=== PATIENT | female | born 1985 ===

== ENCOUNTER 2018-02-07 21:34 | Emergency (ER) | payer BC, MEDICAID ==
[2018-02-07 21:34] VITALS: BMI 23.3
[2018-02-07 22:35] VITALS: BP 118/73; PULSE 77; RESP 16; TEMP 98.4; O2SAT 98
== END 2018-02-07 22:49 | disposition left against medical advice (07) ==
LOC: C.ER 21:34
DX: Z02.89 Encounter for other administrative examinations (principal); F19.10 Other psychoactive substance abuse, uncomplicated

== ENCOUNTER 2018-02-07 23:11 | Inpatient (IN) | payer BC, MEDICAID ==
[2018-02-07 23:12] VITALS: BMI 23.3
--- NOTE | 2018-02-08 00:24 | C.PDOC ---
History Of Present Illness 33 year old female presents to the ER withdrawing from xanax and oxycodone. Patient reports having diffuse body aches. Denies homicidal ideation or suicidal ideation.Last use in am. Some nausea, no vomiting Time Seen by Provider: 02/08/18 00:24 Chief Complaint (Nursing): Substance Abuse History Per: Patient History/Exam Limitations: no limitations Onset/Duration Of Symptoms: Hrs Current Symptoms Are (Timing): Worse Suicide/Self Injury Attempted (Context): None Modifying Factor(s): Alcohol, Narcotics Severity: Moderate Pain Scale Rating Of: 4 Associated Symptoms: Anxiety, Agitation. denies: Suicidal Thoughts, Other ( Homicidal ideation) Involuntary Hold By: None Recent travel outside of the [place]: No Additional History Per: Patient Past Medical History Reviewed: Historical Data, Nursing Documentation, Vital Signs Vital Signs: Last Vital Signs Temp 98.1 F 02/07/18 23:16 Pulse 77 02/07/18 23:16 Resp 16 02/07/18 23:16 BP 110/72 02/07/18 23:16 Pulse Ox 97 02/08/18 02:12 - Medical History PMH: Anxiety, Asthma, Back Problems, Kidney Stones, Chronic Kidney Disease ( kidney stones), Chronic Pain Denies: Diabetes, Hepatitis, HIV, HTN, Seizures, Sexually Transmitted Disease Surgical History: Cholecystectomy - [facility] CYSTOSCOPY NEC (07/30/13) DESTRUCTION OF RIGHT OVARY, PERCUTANEOUS ENDOSCOPIC APPROACH (05/12/16) INFLUENZA VACCINATION (07/30/13) NEBULIZER THERAPY (07/30/13) OTHER SKIN & SUBQ I D (07/13/13) RELEASE LEFT LARGE INTESTINE, PERC ENDO APPROACH (05/12/16) TETANUS TOXOID ADMINIST (07/13/13) TU REMOV URETER OBSTRUCT (08/29/13) URETERAL CATHETERIZATION (08/29/13) URETEROSCOPY (07/30/13) Family History: States: Hypertension - Social History Hx Tobacco Use: No Hx Alcohol Use: Yes Hx Substance Use: Yes - Immunization History Hx Tetanus Toxoid Vaccination: No Hx Influenza Vaccination: No Hx Pneumococcal Vaccination: No Review Of Systems Constitutional: Positive for: Sweats. Negative for: Fever, Chills Cardiovascular: Negative for: Chest Pain, Palpitations Respiratory: Negative for: Cough, Shortness of Breath Gastrointestinal: Positive for: Nausea, Abdominal Pain. Negative for: Vomiting Genitourinary: Negative for: Dysuria Musculoskeletal: Positive for: Other (Diffuse body aches) Skin: Negative for: Rash Neurological: Negative for: Weakness Psych: Positive for: Anxiety, Withdrawal (possible) Physical Exam - Physical Exam Appears: Non-toxic Skin: Warm, Dry Head: Normacephalic Eye(s): bilateral: Normal Inspection Oral Mucosa: Moist Neck: Supple Chest: Symmetrical, No Tenderness Cardiovascular: Rhythm Regular Respiratory: No Rales, No Rhonchi, No Wheezing Gastrointestinal/Abdominal: Soft, Tenderness, No Distention, No Guarding Back: Normal Inspection Extremity: Normal ROM Extremity: Bilateral: Atraumatic Neurological/Psych: Oriented x3 Gait: Steady ED Course And Treatment - Laboratory Results Result Diagrams: 02/08/18 00:57 02/08/18 00:57 O2 Sat by Pulse Oximetry: 97 (Room air) Pulse Ox Interpretation: Normal Progress Note: Blood work and urinalysis ordered. Disposition Discussed With DrCecy: Sherly Olson Comment: accepted the pt on his service and took over the care at 2 AM Doctor Will See Patient In The: Hospital Counseled Patient/Family Regarding: Studies Performed, Diagnosis - Disposition Disposition: HOSPITALIZED Disposition Time: 00:24 Condition: FAIR Forms: [facility] ([place]an) - POA Present On Arrival: None - Clinical Impression Clinical Impression: Alcohol abuse, Drug abuse, Drug dependence, Abdominal pain, Nausea & vomiting - Scribe Statement The provider has reviewed the documentation as recorded by the Scribe Chano Burks All medical record entries made by the Scribe were at my direction and personally dictated by me. I have reviewed the chart and agree that the record accurately reflects my personal performance of the history, physical exam, medical decision making, and the department course for this patient. I have also personally directed, reviewed, and agree with the discharge instructions and disposition. Decision To Admit - Pt Status Changed To: Hospital Disposition Of: Inpatient - Admit Certification Admit to Inpatient:: After my assessment, the patient will require hospitalization for at least two midnights. This is because of the severity of symptoms shown, intensity of services needed, and/or the medical risk in this patient being treated as an outpatient. - InPatient: Physician Admission Certification: I certify that this patient requires 2 or more midnights of care for the following reason:: After my assessment, the patient will require hospitalization for at least two midnights. This is because of the severity of symptoms shown, intensity of services needed, and/or the medical risk in this patient being treated as an outpatient. - . Bed Request Type: Regular Admitting Physician: Sherly Olson Patient Diagnosis: Alcohol abuse, Drug abuse, Drug dependence, Abdominal pain, Nausea & vomiting
[2018-02-08 01:07] LABS: BASO # 0.1 K/uL (0.0-0.2); BASO % 1.2 % (0.0-2.0); EOS # 0.2 K/uL (0.0-0.7); EOS % 2.8 % (0.0-4.0); HEMOGLOBIN 13.5 g/dL (11.0-16.0); LYMPH # 2.1 K/uL (1.0-4.3); MEAN CELL VOLUME 93.1 fL (81.0-99.0); MEAN CORPUSCULAR HEMOGLOBIN 31.3 pg (27.0-31.0); MEAN CORPUSCULAR HGB CONC 33.7 g/dL (33.0-37.0); MEAN PLATELET VOLUME 8.1 fL (7.2-11.7); MONO # 1.4 K/uL (0.0-0.8); MONO % 18.7 % (0.0-10.0); NEUT # 3.6 K/uL (1.8-7.0); NEUT % 48.3 % (50.0-75.0); NRBC % 0.1 % (0.0-2.0); RBC 4.31 Mil/uL (3.80-5.20); RED CELL DISTRIBUTION WIDTH 13.7 % (11.5-14.5); WHITE BLOOD COUNT 7.4 K/uL (4.8-10.8)
[2018-02-08 01:12] LABS: CALCIUM 8.5 mg/dl (8.6-10.4); GFR AFRICAN-AMERICAN > 60; GFR NON-AFRICAN AMERICAN > 60
[2018-02-08 01:13] LABS: ALB/GLOB RATIO 1.4 (1.0-2.1); ALBUMIN 4.7 g/dL (3.5-5.0); ALT/SGPT 9 U/L (9-52); AST/SGOT 50 U/L (14-36); BLOOD UREA NITROGEN 10 mg/dL (7-17)
[2018-02-08 01:29] LABS: SQUAMOUS EPITHIAL 2 /hpf (0-5); URINE BILIRUBIN NEGATIVE (NEGATIVE); URINE BLOOD NEGATIVE (NEGATIVE); URINE CLARITY Clear (Clear); URINE COLOR Yellow (YELLOW); URINE GLUCOSE (UA) NORMAL (Normal); URINE LEUKOCYTE ESTERASE NEG Leu/uL (Negative); URINE PROTEIN NEGATIVE (NEGATIVE)
[2018-02-08 01:35] LABS: HCG,QUALITATIVE URINE NEGATIVE (NEGATIVE)
[2018-02-08 01:51] LABS: BARBITURATES, UR NEGATIVE (NEGATIVE); PHENCYCLIDINE, UR NEGATIVE (NEGATIVE)
[2018-02-08 02:12] LABS: BENZODIAZEPINES, UR POSITIVE (NEGATIVE); OPIATES, UR POSITIVE (NEGATIVE)
[2018-02-08] MEDS ORDERED: Pantoprazole 40 mg EC Tab PO ONE (07:32)
[2018-02-08] MEDS ORDERED: Enoxaparin 40 mg Syringe ONE (07:32)
[2018-02-08] MEDS: Enoxaparin 40 mg Syringe SC SCH (09:09)
[2018-02-08] MEDS: Pantoprazole 40 mg EC Tab PO SCH (09:09)
[2018-02-08] MEDS ORDERED: Sod Polystyrene Sulf 15 gm/60 ml Susp PO ONE (10:04)
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
[2018-02-08] MEDS ORDERED: Aluminum Hydroxide/Magnesium Hydroxide Susp (30 mL) PO PRN (16:18)
--- NOTE | 2018-02-08 17:36 | CP.PCM.HP ---
Past Patient History - Infectious Disease Hx of Infectious Diseases: None - Past Medical History & Family History Past Medical History?: Yes - Past Social History Smoking Status: Heavy Smoker > 10 Cigarettes Daily - CARDIAC Hx Hypertension: No - PULMONARY Hx Chronic Obstructive Pulmonary Disease (COPD): Yes - NEUROLOGICAL Hx Seizures: No - HEENT Hx HEENT Problems: No - RENAL Hx Chronic Kidney Disease: Yes (kidney stones) Hx Kidney Stones: Yes - ENDOCRINE/METABOLIC Hx Endocrine Disorders: No - HEMATOLOGICAL/ONCOLOGICAL Hx Anemia: Yes Hx Human Immunodeficiency Virus (HIV): No - INTEGUMENTARY Hx Dermatological Problems: No - MUSCULOSKELETAL/RHEUMATOLOGICAL Hx Musculoskeletal Disorders: Yes Hx Falls: Yes - GASTROINTESTINAL Hx Gastrointestinal Disorders: No - GENITOURINARY/GYNECOLOGICAL Hx Sexually Transmitted Disorders: No - PSYCHIATRIC Hx Psychophysiologic Disorder: Yes Hx Anxiety: Yes Hx Bipolar Disorder: Yes Hx Depression: Yes Hx Substance Use: Yes - SURGICAL HISTORY Hx Cholecystectomy: Yes - ANESTHESIA Hx Anesthesia: Yes Hx Anesthesia Reactions: No Hx Malignant Hyperthermia: No Meds Allergies/Adverse Reactions: Allergies Allergy/AdvReac Type Severity Reaction Status Date / Time No Known Allergies Allergy Verified 02/07/18 22:35 Physical Exam - Constitutional Appears: Well - Head Exam Head Exam: ATRAUMATIC, NORMAL INSPECTION, NORMOCEPHALIC - Eye Exam Eye Exam: EOMI, Normal appearance, PERRL Pupil Exam: NORMAL ACCOMODATION, PERRL - ENT Exam ENT Exam: Mucous Membranes Moist, Normal Exam - Neck Exam Neck exam: Positive for: Normal Inspection - Respiratory Exam Respiratory Exam: Decreased Breath Sounds - Cardiovascular Exam Cardiovascular Exam: REGULAR RHYTHM, +S1, +S2 - GI/Abdominal Exam GI & Abdominal Exam: Diminished Bowel Sounds, Soft - Rectal Exam Rectal Exam: Deferred Results - Vital Signs Recent Vital Signs: Last Vital Signs Temp 98.4 F 02/08/18 16:05 Pulse 63 02/08/18 16:05 Resp 20 02/08/18 16:05 BP 129/92 H 02/08/18 16:05 Pulse Ox 98 02/08/18 16:05 - Labs Result Diagrams: 02/08/18 00:57 02/08/18 00:57 Labs: Laboratory Results - last 24 hr 02/08/18 02/08/18 02/08/18 00:57 00:57 01:23 WBC 7.4 RBC 4.31 Hgb 13.5 Hct 40.1 MCV 93.1 MCH 31.3 H MCHC 33.7 RDW 13.7 Plt Count 309 MPV 8.1 Neut % (Auto) 48.3 L Lymph % (Auto) 29.0 Boyle % (Auto) 18.7 H Eos % (Auto) 2.8 Baso % (Auto) 1.2 Neut # (Auto) 3.6 Lymph # (Auto) 2.1 Boyle # (Auto) 1.4 H Eos # (Auto) 0.2 Baso # (Auto) 0.1 Sodium 142 Potassium 5.5 H Chloride 104 Carbon Dioxide 23 Anion Gap 20 BUN 10 Creatinine 0.7 Est GFR ( Amer) > 60 Est GFR (Non-Af Amer) > 60 Random Glucose 92 Calcium 8.5 L Total Bilirubin 1.1 AST 50 H D ALT 9 Alkaline Phosphatase 44 Total Protein 8.1 Albumin 4.7 Globulin 3.5 Albumin/Globulin Ratio 1.4 Urine Color Yellow Urine Clarity Clear Urine pH 6.0 Ur Specific [place] 1.023 Urine Protein Negative Urine Glucose (UA) Normal Urine Ketones Negative Urine Blood Negative Urine Nitrate Negative Urine Bilirubin Negative Urine Urobilinogen 2.0 H Ur Leukocyte Esterase Neg Urine WBC (Auto) 1 Urine RBC (Auto) < 1 Ur Squamous Epith Cells 2 Urine HCG, Qual Negative Urine Opiates Screen Urine Methadone Screen Ur Barbiturates Screen Ur Phencyclidine Scrn Ur Amphetamines Screen U Benzodiazepines Scrn U Oth Cocaine Metabols U Cannabinoids Screen Alcohol, Quantitative 31 H 02/08/18 01:23 WBC RBC Hgb Hct MCV MCH MCHC RDW Plt Count MPV Neut % (Auto) Lymph % (Auto) Boyle % (Auto) Eos % (Auto) Baso % (Auto) Neut # (Auto) Lymph # (Auto) Boyle # (Auto) Eos # (Auto) Baso # (Auto) Sodium Potassium Chloride Carbon Dioxide Anion Gap BUN Creatinine Est GFR ( Amer) Est GFR (Non-Af Amer) Random Glucose Calcium Total Bilirubin AST ALT Alkaline Phosphatase Total Protein Albumin Globulin Albumin/Globulin Ratio Urine Color Urine Clarity Urine pH Ur Specific [place] Urine Protein Urine Glucose (UA) Urine Ketones Urine Blood Urine Nitrate Urine Bilirubin Urine Urobilinogen Ur Leukocyte Esterase Urine WBC (Auto) Urine RBC (Auto) Ur Squamous Epith Cells Urine HCG, Qual Urine Opiates Screen Positive H Urine Methadone Screen Negative Ur Barbiturates Screen Negative Ur Phencyclidine Scrn Negative Ur Amphetamines Screen Negative U Benzodiazepines Scrn Positive U Oth Cocaine Metabols Negative U Cannabinoids Screen Positive H Alcohol, Quantitative
[2018-02-09] MEDS ORDERED: Sod Polystyrene Sulf 15 gm/60 ml Susp PO ONE (09:09)
[2018-02-09] MEDS: Pantoprazole 40 mg EC Tab PO SCH (09:58)
[2018-02-09] MEDS: Enoxaparin 40 mg Syringe SC SCH (09:58)
[2018-02-09 11:13] LABS: BASO # 0.1 K/uL (0.0-0.2); BASO % 1.2 % (0.0-2.0); EOS # 0.2 K/uL (0.0-0.7); EOS % 3.1 % (0.0-4.0); HEMOGLOBIN 14.5 g/dL (11.0-16.0); LYMPH # 1.7 K/uL (1.0-4.3); LYMPH % 27.1 % (20.0-40.0); MEAN CELL VOLUME 92.6 fL (81.0-99.0); MEAN CORPUSCULAR HEMOGLOBIN 31.7 pg (27.0-31.0); MEAN CORPUSCULAR HGB CONC 34.2 g/dL (33.0-37.0); MEAN PLATELET VOLUME 7.7 fL (7.2-11.7); MONO # 0.8 K/uL (0.0-0.8); MONO % 13.4 % (0.0-10.0); NEUT # 3.5 K/uL (1.8-7.0); NEUT % 55.2 % (50.0-75.0); NRBC % 0.1 % (0.0-2.0); RBC 4.57 Mil/uL (3.80-5.20); RED CELL DISTRIBUTION WIDTH 13.4 % (11.5-14.5); WHITE BLOOD COUNT 6.3 K/uL (4.8-10.8)
[2018-02-09 11:31] LABS: ALB/GLOB RATIO 1.2 (1.0-2.1); ALBUMIN 4.1 g/dL (3.5-5.0); ALT/SGPT 19 U/L (9-52); AST/SGOT 22 U/L (14-36); BLOOD UREA NITROGEN 11 mg/dL (7-17); GFR AFRICAN-AMERICAN > 60; GFR NON-AFRICAN AMERICAN > 60
--- NOTE | 2018-02-09 11:46 | PCM.PYCHPN ---
Psychiatric Progress Note - Psychiatric Progress Note Patient seen today, length of contact: 15 minutes Patient Chief Complaint: "I still feel a little anxious" Problems Identified/Issues Discussed: Patient seen and evaluated at bedside. Chart reviewed and case discussed with nursing staff. She states she still feels anxious and depressed. She denies any racing thoughts. She denies hearing any voices and seeing any strange things. She states she does not feel like anyone is watching or coming for her, denies feelings of paranoia. She denies thoughts of harming self or harming others. She states she continues to have some abdominal cramping and some nausea, however denies any vomiting or diarrhea. Medication Change: Yes Medical Record Reviewed: Yes Mental Status Examination - Cognitive Function Orientation: Person, Place, Situation, Time Memory: Intact Attention: WNL Concentration: WNL Association: WNL Fund of Knowledge: WNL - Mood Mood: Depressed, Anxious - Affect Affect: Constricted - Speech Speech: Appropriate - Formal Thought Process Formal Thought Process: No Impairment - Suicidal Ideation Suicidal Ideation: No - Homicidal Ideation Homicidal Ideation: No Goal/Treatment Plan - Goal/Treatment Plan Need for Continued Stay: Severe depression anxiety, Discharge may exacerbated symptoms Progress Toward Problem(s) and Goals/Treatment Plan: Opioid use disorder Benzodiazepine use disorder Cannabis use disorder Ativan 1mg PO Q6 PRN Ativan 1mg PO Q4 SABA On Methadone taper, Methadone 15mg PO today Clonidine 0.1mg PO Q6 PRN Trazodone 50mg PO HS Patient amenable to inpatient psychiatric treatment Continue to monitor Case discussed with Dr. Lobo Hernandez PGY1
--- NOTE | 2018-02-09 15:33 | CP.PCM.PN ---
Subjective - Date & Time of Evaluation Date of Evaluation: 02/09/18 Time of Evaluation: 11:00 - Subjective Subjective: PGY2- Progress Note for Dr. Olson Patient seen and examined at bedside and in no acute distress. Patient admits to feeling very anxious. Patient says sometimes she feels her heart beating quickly. Patient is nauseous, but has had no episodes of vomiting. Patient denies chest pain, shortness of breath, abdominal pain, diarrhea, or constipation. Objective - Vital Signs/Intake and Output Vital Signs (last 24 hours): Temp Pulse Resp BP Pulse Ox 97.8 F 87 20 124/73 98 02/09/18 07:00 02/09/18 07:00 02/09/18 07:00 02/09/18 07:00 02/09/18 07:00 - Medications Medications: Current Medications Al Hydrox/Mg Hydrox/Simethicone (Maalox 30 Ml) 30 ml PO TID PRN PRN Reason: Indigestion / Heartburn Clonidine HCl (Catapres) 0.1 mg PO Q6 PRN PRN Reason: withdrawl symptoms Last Admin: 02/08/18 02:00 Dose: 0.1 mg Enoxaparin Sodium (Lovenox) 40 mg SC DAILY [facility] Last Admin: 02/09/18 09:58 Dose: Not Given Loperamide HCl (Imodium) 2 mg PO Q8 PRN PRN Reason: Diarrhea Lorazepam (Ativan) 1 mg PO Q4 SABA PRN Reason: Taper Stop: 02/12/18 16:29 Last Admin: 02/09/18 12:23 Dose: 1 mg Lorazepam (Ativan) 1 mg PO Q6 PRN Last Admin: 02/08/18 17:04 Dose: 1 mg Methadone HCl (Methadone) 15 mg PO DAILY [facility] PRN Reason: Taper Stop: 02/12/18 09:59 Last Admin: 02/09/18 09:58 Dose: 15 mg Ondansetron HCl (Zofran Tab) 4 mg PO Q8 PRN PRN Reason: Nausea/Vomiting Last Admin: 02/09/18 10:25 Dose: 4 mg Pantoprazole Sodium (Protonix Ec Tab) 40 mg PO DAILY [facility] Last Admin: 02/09/18 09:58 Dose: 40 mg Pseudoephedrine HCl (Sudafed Tab) 60 mg PO QID PRN PRN Reason: Nasal/Sinus Congestion Trazodone HCl (Desyrel) 50 mg PO HS SABA Last Admin: 02/08/18 21:11 Dose: 50 mg - Labs Labs: 02/09/18 11:10 02/09/18 11:10 - Constitutional Appears: Non-toxic, No Acute Distress - Head Exam Head Exam: ATRAUMATIC, NORMAL INSPECTION, NORMOCEPHALIC - Eye Exam Eye Exam: EOMI, Normal appearance - ENT Exam ENT Exam: Mucous Membranes Moist - Respiratory Exam Respiratory Exam: Clear to Ausculation Bilateral, NORMAL BREATHING PATTERN - Cardiovascular Exam Cardiovascular Exam: REGULAR RHYTHM, RRR, +S1, +S2 - GI/Abdominal Exam GI & Abdominal Exam: Soft, Normal Bowel Sounds. absent: Tenderness - Extremities Exam Extremities Exam: Full ROM, Normal Inspection. absent: Pedal Edema, Tenderness Assessment and Plan - Assessment and Plan (Free Text) Assessment: Opioid use disorder Benzodiazepine use disorder Cannabis use disorder patient to be transferred to psych psych consulted, Dr. Diamond Ativan 1mg PO Q6 PRN Ativan 1mg PO Q4 SABA On Methadone taper, Methadone 15mg PO today Clonidine 0.1mg PO Q6 PRN Trazodone 50mg PO HS Hyperkalemia resolved Dispo: patient medically stable to be transferred to psychiatric unit Discussed with Dr. Olson
--- NOTE | 2018-02-09 19:24 | CP.PCM.PN ---
Subjective - Date & Time of Evaluation Date of Evaluation: 02/09/18 Time of Evaluation: 08:20 - Subjective Subjective: clinically same Objective - Vital Signs/Intake and Output Vital Signs (last 24 hours): Temp Pulse Resp BP Pulse Ox 98.7 F 86 20 110/71 97 02/09/18 15:00 02/09/18 15:00 02/09/18 15:00 02/09/18 15:00 02/09/18 15:00 - Medications Medications: Current Medications Al Hydrox/Mg Hydrox/Simethicone (Maalox 30 Ml) 30 ml PO TID PRN PRN Reason: Indigestion / Heartburn Clonidine HCl (Catapres) 0.1 mg PO Q6 PRN PRN Reason: withdrawl symptoms Last Admin: 02/08/18 02:00 Dose: 0.1 mg Enoxaparin Sodium (Lovenox) 40 mg SC DAILY [facility] Last Admin: 02/09/18 09:58 Dose: Not Given Loperamide HCl (Imodium) 2 mg PO Q8 PRN PRN Reason: Diarrhea Lorazepam (Ativan) 1 mg PO Q6 SABA PRN Reason: Taper Stop: 02/12/18 16:29 Last Admin: 02/09/18 18:16 Dose: Not Given Lorazepam (Ativan) 1 mg PO Q6 PRN Last Admin: 02/08/18 17:04 Dose: 1 mg Methadone HCl (Methadone) 15 mg PO DAILY [facility] PRN Reason: Taper Stop: 02/12/18 09:59 Last Admin: 02/09/18 09:58 Dose: 15 mg Ondansetron HCl (Zofran Tab) 4 mg PO Q8 PRN PRN Reason: Nausea/Vomiting Last Admin: 02/09/18 10:25 Dose: 4 mg Pantoprazole Sodium (Protonix Ec Tab) 40 mg PO DAILY [facility] Last Admin: 02/09/18 09:58 Dose: 40 mg Pseudoephedrine HCl (Sudafed Tab) 60 mg PO QID PRN PRN Reason: Nasal/Sinus Congestion Trazodone HCl (Desyrel) 50 mg PO HS [facility] Last Admin: 02/08/18 21:11 Dose: 50 mg - Labs Labs: 02/09/18 11:10 02/09/18 11:10 - Constitutional Appears: Non-toxic - Head Exam Head Exam: NORMAL INSPECTION - Eye Exam Eye Exam: Normal appearance - ENT Exam ENT Exam: Mucous Membranes Moist - Neck Exam Neck Exam: Normal Inspection - Respiratory Exam Respiratory Exam: Decreased Breath Sounds - Cardiovascular Exam Cardiovascular Exam: REGULAR RHYTHM - GI/Abdominal Exam GI & Abdominal Exam: Diminished Bowel Sounds - Rectal Exam Rectal Exam: Deferred
[2018-02-10] MEDS: Pantoprazole 40 mg EC Tab PO SCH (10:09)
[2018-02-10] MEDS: Enoxaparin 40 mg Syringe SC SCH (10:10)
--- NOTE | 2018-02-10 13:03 | PCM.BM ---
<Johanna Andrade - Last Filed: 02/10/18 13:01> Treatment Plan Problems - Problems identified on initial assessmt Depression Date Initiated: 02/10/18 Time Initiated: 13:01 Assessment reference: NA Status: Active Substance Abuse Date Initiated: 02/10/18 Time Initiated: 13:01 Assessment reference: NA Status: Active Treatment assets and liabiliti Patient Assests: adapts well, cooperative, ADL independent, physically healthy, negotiates basic needs, cognitively intact Patient Liabilities: live alone (Lives with family), substance abuse (Opiates, Benzo, THC, ETOH), medical problems (Asthma, Kidney stone) - Milieu Protocol Maintain good personal hygiene: daily Encourage regular showers, daily Remind patient to perform daily oral care, daily Assist patient to perform ADL's (Self) Conduct patient checks and document Observation sheet: Q15 minutes (Safety) Maintain personal safety: every shift Educate patient to report safety concerns to staff, every shift Monitor environment for contraband/sharps Medication safety: Monitor for expected outcome, potential side effects: every shift, Assess barriers to learning: every shift, Assess readiness for medication education: every shift Milieu Narrative: Opioid use disorder Benzodiazepine use disorder Cannabis use disorder Ativan 1mg PO Q6 PRN Ativan 1mg PO Q4 SABA On Methadone taper, Methadone 15mg PO today Clonidine 0.1mg PO Q6 PRN Trazodone 50mg PO HS Patient amenable to inpatient psychiatric treatment Continue to monitor Case discussed with Dr. Lobo Hernandez PGY1 Discharge/Continuing Care - Treatment Team Participation Patient/Family/SO Statement: Opioid use disorder Benzodiazepine use disorder Cannabis use disorder Ativan 1mg PO Q6 PRN Ativan 1mg PO Q4 SABA On Methadone taper, Methadone 15mg PO today Clonidine 0.1mg PO Q6 PRN Trazodone 50mg PO HS Patient amenable to inpatient psychiatric treatment Continue to monitor Case discussed with Dr. Lobo Hernandez PGY1 <Sandy Diamond - Last Filed: 02/11/18 10:56> - Diagnosis (1) Depressive disorder Status: Acute Interventions: 02/11/18 10:57 * Assess/adjust medications daily and /or as needed * See patient on an individual basis 7x/week to assess symptoms of depression * Monitor for side effects & effectiveness of medications * (2) Opioid use disorder, severe, dependence Status: Acute Interventions: 02/11/18 10:58 * Assess 7x/week regarding severity of withdrawal * Educate regarding risks, benefits, side effects and alternatives of medications * Use Motivational Interviewing for abstinence * Use CBT for relapse prevention * Medication management for withdrawal symptoms * Encourage medication assisted treatment * <Jessika Alberto - Last Filed: 02/11/18 11:47> Family Contact Family involvement: Family/SO is involved Family contact: Patient agrees to contact Family contact name: Parents Family contacted how many times per week?: 1 - Goals for Treatment Patient goals for treatment: "I want an outpatient program." Discharge/Continuing Care - Education Needs Education Needs: Patient Medication, Patient Coping Skills - Discharge Discharge Criteria: Tolerates medication w/o severe side effects, Reduction of target symptoms Discharge to:: Home, With Family - Treatment Team Participation Discussed with Family/SO: No Was Patient/Family/SO present at Treatment Team Meeting: Yes
--- NOTE | 2018-02-11 01:09 | PCM.PYCHPN ---
Psychiatric Progress Note - Psychiatric Progress Note Patient seen today, length of contact: 15 minutes Medication Change: Yes Medical Record Reviewed: Yes Mental Status Examination - Cognitive Function Orientation: Person, Place, Situation, Time Memory: Intact Attention: WNL Concentration: WNL Association: WNL Fund of Knowledge: WNL - Mood Mood: Depressed, Anxious - Affect Affect: Constricted - Speech Speech: Appropriate - Formal Thought Process Formal Thought Process: No Impairment - Suicidal Ideation Suicidal Ideation: No - Homicidal Ideation Homicidal Ideation: No Goal/Treatment Plan - Goal/Treatment Plan Need for Continued Stay: Severe depression anxiety, Discharge may exacerbated symptoms
[2018-02-11] MEDS: Pantoprazole 40 mg EC Tab PO SCH (09:07)
[2018-02-11] MEDS: Enoxaparin 40 mg Syringe SC SCH (09:07)
[2018-02-12] MEDS: Pantoprazole 40 mg EC Tab PO SCH (10:03)
[2018-02-13 06:47] VITALS: RESP 20
[2018-02-13] MEDS: Pantoprazole 40 mg EC Tab PO SCH (09:40)
[2018-02-13 15:42] VITALS: PULSE 83
[2018-02-14 06:31] VITALS: BP 91/60; TEMP 98.4; O2SAT 97
[2018-02-14] MEDS: Pantoprazole 40 mg EC Tab PO SCH (09:26)
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
--- NOTE | 2018-02-14 10:13 | PCM.PYCHPN ---
Psychiatric Progress Note - Psychiatric Progress Note Patient seen today, length of contact: 15 minutes Medication Change: Yes Medical Record Reviewed: Yes Mental Status Examination - Cognitive Function Orientation: Person, Place, Situation, Time Memory: Intact Attention: WNL Concentration: WNL Association: WNL Fund of Knowledge: WNL Decription of patient's judgement and insights: good, fair - Mood Mood: Neutral - Affect Affect: Constricted - Speech Speech: Soft - Formal Thought Process Formal Thought Process: No Impairment Psychotic Thoughts and Behaviors: denies any AVH - Suicidal Ideation Suicidal Ideation: No - Homicidal Ideation Homicidal Ideation: No Goal/Treatment Plan - Goal/Treatment Plan Need for Continued Stay: Severe depression anxiety, Discharge may exacerbated symptoms
== END 2018-02-14 11:53 | disposition home or self-care (01) | DRG 885 ==
LOC: C.ER 23:11 → C.9E 02-08 02:09 → C.5S 02-08 07:48 → C.5E 02-10 12:44
PROVIDERS: ADMIT Psychiatry & Neurology Psychiatry; ATTEND Psychiatry & Neurology Psychiatry
DX: F33.1 Major depressive disorder, recurrent, moderate (principal); F11.20 Opioid dependence, uncomplicated; F41.9 Anxiety disorder, unspecified; F13.10 Sedative, hypnotic or anxiolytic abuse, uncomplicated; F12.90 Cannabis use, unspecified, uncomplicated; E87.5 Hyperkalemia; I12.9 Hypertensive chronic kidney disease with stage 1 through stage 4 chronic kidney disease, or unspecified chronic kidney disease; J44.9 Chronic obstructive pulmonary disease, unspecified; N18.9 Chronic kidney disease, unspecified; F17.210 Nicotine dependence, cigarettes, uncomplicated; F10.10 Alcohol abuse, uncomplicated; Y90.1 Blood alcohol level of 20-39 mg/100 ml

== ENCOUNTER 2018-10-17 19:21 | Emergency (ER) | payer BC, OTHER ==
[2018-10-17 19:21] VITALS: BMI 23.3
--- NOTE | 2018-10-17 22:52 | C.PDOC ---
History Of Present Illness Patient reports depression and anxiety for over 6 months, starting after her mother's . Denies SI/HI. No substance abuse. No other complaints. Time Seen by Provider: 10/17/18 22:25 Chief Complaint (Nursing): Psychiatric Evaluation History Per: Patient Current Symptoms Are (Timing): Still Present Associated Symptoms: Anxiety, Depression. denies: Suicidal Thoughts Past Medical History Reviewed: Historical Data, Nursing Documentation, Vital Signs Vital Signs: Last Vital Signs Temp 98.2 F 10/17/18 20:21 Pulse 93 H 10/17/18 20:21 Resp 16 10/17/18 20:21 BP 128/84 10/17/18 20:21 Pulse Ox 97 10/17/18 20:21 DANN Report Viewed: Yes - Medical History PMH: Anemia, Anxiety, Asthma, Back Problems, Bipolar Disorder, COPD, Depression, Kidney Stones, Chronic Kidney Disease (kidney stones), Chronic Pain Denies: Diabetes, Hepatitis, HIV, HTN, Seizures, Sexually Transmitted Disease Surgical History: Cholecystectomy - [facility] Procedures CYSTOSCOPY NEC (07/30/13) DESTRUCTION OF RIGHT OVARY, PERCUTANEOUS ENDOSCOPIC APPROACH (05/12/16) GROUP PSYCHOTHERAPY (04/01/18) INDIV PSYCHOTHERAPY FOR SUBSTANCE ABUSE, COGNITIV BEHAVIORAL (04/01/18) INDIV PSYCHOTHERAPY FOR SUBSTANCE ABUSE, MOTIVATION ENHANCE (04/01/18) INDIV PSYCHOTHERAPY FOR SUBSTANCE ABUSE, PSYCHOEDUCATION (04/01/18) INFLUENZA VACCINATION (07/30/13) NEBULIZER THERAPY (07/30/13) OTHER SKIN & SUBQ I D (07/13/13) RELEASE LEFT LARGE INTESTINE, PERC ENDO APPROACH (05/12/16) TETANUS TOXOID ADMINIST (07/13/13) TU REMOV URETER OBSTRUCT (08/29/13) URETERAL CATHETERIZATION (08/29/13) URETEROSCOPY (07/30/13) Family History: States: Unknown Family Hx, Hypertension - Social History Hx Tobacco Use: No Hx Alcohol Use: No Hx Substance Use: No - Immunization History Hx Tetanus Toxoid Vaccination: No Hx Influenza Vaccination: No Hx Pneumococcal Vaccination: No Review Of Systems Except As Marked, All Systems Reviewed And Found Negative. Constitutional: Negative for: Fever Cardiovascular: Negative for: Chest Pain, Palpitations Respiratory: Negative for: Shortness of Breath Gastrointestinal: Negative for: Nausea, Vomiting, Abdominal Pain Neurological: Negative for: Confusion Psych: Positive for: Anxiety, Depression. Negative for: Suicidal ideation Physical Exam - Physical Exam Appears: No Acute Distress Skin: Normal Color, Warm, Dry Head: Atraumatic Eye(s): bilateral: Normal Inspection Oral Mucosa: Moist Chest: Symmetrical Cardiovascular: Rhythm Regular Respiratory: Normal Breath Sounds Gastrointestinal/Abdominal: Normal Exam Extremity: Normal ROM Neurological/Psych: Oriented x3, Normal Speech Gait: Steady ED Course And Treatment O2 Sat by Pulse Oximetry: 97 Medical Decision Making Medical Decision Making: Patient evaluated by crisis, no female psych beds available at this time, and she does not want to go to another facility. Given absence of SI/HI, can discharge home. Patient will return tomorrow to attempt admission here again. Patient given 1ng ativan PO for anxiety prior to discharge. Disposition - Disposition Disposition: HOME/ ROUTINE Disposition Time: 22:54 Condition: STABLE - Clinical Impression Clinical Impression: Depression, Anxiety
[2018-10-17 23:34] VITALS: BP 115/77; PULSE 78; RESP 20; TEMP 98.1; O2SAT 96
== END 2018-10-17 23:32 | disposition home or self-care (01) ==
LOC: C.ER 19:21
DX: F32.9 Major depressive disorder, single episode, unspecified (principal); F41.9 Anxiety disorder, unspecified

== ENCOUNTER 2018-10-18 12:31 | Inpatient (IN) | payer BC, OTHER ==
[2018-10-18 12:31] VITALS: BMI 23.3
[2018-10-18 13:47] LABS: BASO # 0.1 K/uL (0.0-0.2); BASO % 0.8 % (0.0-2.0); EOS # 0.6 K/uL (0.0-0.7); HEMOGLOBIN 13.8 g/dL (11.0-16.0); LYMPH # 2.7 K/uL (1.0-4.3); MEAN CELL VOLUME 93.1 fL (81.0-99.0); MEAN CORPUSCULAR HEMOGLOBIN 31.6 pg (27.0-31.0); MEAN CORPUSCULAR HGB CONC 33.9 g/dL (33.0-37.0); MEAN PLATELET VOLUME 7.2 fL (7.2-11.7); MONO # 0.7 K/uL (0.0-0.8); MONO % 7.9 % (0.0-10.0); NEUT # 5.2 K/uL (1.8-7.0); NEUT % 56.3 % (50.0-75.0); NRBC % 0.1 % (0.0-2.0); RBC 4.36 Mil/uL (3.80-5.20); RED CELL DISTRIBUTION WIDTH 13.9 % (11.5-14.5); WHITE BLOOD COUNT 9.2 K/uL (4.8-10.8)
--- NOTE | 2018-10-18 13:48 | C.PDOC ---
History Of Present Illness Patient reports depression and anxiety for several months since her mother . Was seen here yesterday seeking psych admission, however there were no female beds and patient did not want tot be transferred to another facility. She denied SI/HI and was stable for discharge, crisis informed her to come back today for admission. Patient continues to deny SI/HI, hallucinations, or any other medical complaints. Time Seen by Provider: 10/18/18 13:08 Chief Complaint (Nursing): Psychiatric Evaluation History Per: Patient History/Exam Limitations: no limitations Onset/Duration Of Symptoms: Other (months) Current Symptoms Are (Timing): Still Present Suicide/Self Injury Attempted (Context): None Associated Symptoms: Anxiety, Depression Involuntary Hold By: None Past Medical History Reviewed: Historical Data, Nursing Documentation, Vital Signs Vital Signs: Last Vital Signs Temp 98.6 F 10/18/18 12:43 Pulse 90 10/18/18 12:43 Resp 18 10/18/18 12:43 BP 132/90 10/18/18 12:43 Pulse Ox 99 10/18/18 12:43 - Medical History PMH: Anemia, Anxiety, Asthma, Back Problems, COPD, Depression, Kidney Stones, Chronic Kidney Disease (kidney stones), Chronic Pain Denies: Bipolar Disorder, Diabetes, Hepatitis, HIV, HTN, Seizures, Sexually Transmitted Disease Surgical History: Cholecystectomy - [facility] Procedures CYSTOSCOPY NEC (07/30/13) DESTRUCTION OF RIGHT OVARY, PERCUTANEOUS ENDOSCOPIC APPROACH (05/12/16) GROUP PSYCHOTHERAPY (04/01/18) INDIV PSYCHOTHERAPY FOR SUBSTANCE ABUSE, COGNITIV BEHAVIORAL (04/01/18) INDIV PSYCHOTHERAPY FOR SUBSTANCE ABUSE, MOTIVATION ENHANCE (04/01/18) INDIV PSYCHOTHERAPY FOR SUBSTANCE ABUSE, PSYCHOEDUCATION (04/01/18) INFLUENZA VACCINATION (07/30/13) NEBULIZER THERAPY (07/30/13) OTHER SKIN & SUBQ I D (07/13/13) RELEASE LEFT LARGE INTESTINE, PERC ENDO APPROACH (05/12/16) TETANUS TOXOID ADMINIST (07/13/13) TU REMOV URETER OBSTRUCT (08/29/13) URETERAL CATHETERIZATION (08/29/13) URETEROSCOPY (07/30/13) Family History: States: Unknown Family Hx, Hypertension - Social History Hx Tobacco Use: No Hx Alcohol Use: No Hx Substance Use: No - Immunization History Hx Tetanus Toxoid Vaccination: No Hx Influenza Vaccination: Yes (april 2018) Hx Pneumococcal Vaccination: No Review Of Systems Except As Marked, All Systems Reviewed And Found Negative. Constitutional: Negative for: Fever, Chills Cardiovascular: Negative for: Chest Pain Respiratory: Negative for: Cough, Shortness of Breath Gastrointestinal: Negative for: Nausea, Vomiting, Abdominal Pain Neurological: Negative for: Confusion, Altered Mental Status Psych: Positive for: Anxiety, Depression. Negative for: Suicidal ideation Physical Exam - Physical Exam Appears: Well, Non-toxic, No Acute Distress Skin: Normal Color, Warm, Dry Head: Atraumatic, Normacephalic Eye(s): bilateral: Normal Inspection Oral Mucosa: Moist Chest: Symmetrical Cardiovascular: Rhythm Regular Respiratory: Normal Breath Sounds Gastrointestinal/Abdominal: Normal Exam Extremity: Normal ROM, No Deformity, No Swelling Extremity: Bilateral: Atraumatic Neurological/Psych: Oriented x3, Normal Speech Gait: Steady ED Course And Treatment - Laboratory Results Result Diagrams: 10/18/18 13:40 10/18/18 13:40 O2 Sat by Pulse Oximetry: 99 Medical Decision Making Medical Decision Making: Patient evaluated by crisis, medically cleared, and admitted to psych unit under Dr. Diamond. Disposition - Disposition Disposition: HOSPITALIZED Disposition Time: 16:45 Condition: STABLE - Clinical Impression Clinical Impression: Major depression, Opiate abuse, continuous
[2018-10-18 13:50] LABS: SQUAMOUS EPITHIAL 2 /hpf (0-5); URINE BACTERIA RARE (<OCC); URINE BILIRUBIN NEGATIVE (NEGATIVE); URINE BLOOD NEGATIVE (NEGATIVE); URINE CLARITY Clear (Clear); URINE COLOR Yellow (YELLOW); URINE GLUCOSE (UA) NORMAL (Normal); URINE LEUKOCYTE ESTERASE NEG Leu/uL (Negative); URINE PROTEIN NEGATIVE (NEGATIVE); URINE UROBILINOGEN NORMAL mg/dL (0.2-1.0)
[2018-10-18 14:14] LABS: ALB/GLOB RATIO 1.5 (1.0-2.1); ALT/SGPT 6 U/L (9-52); AST/SGOT 24 U/L (14-36); BLOOD UREA NITROGEN 10 mg/dL (7-17); CALCIUM 8.6 mg/dl (8.6-10.4); GFR NON-AFRICAN AMERICAN > 60
[2018-10-18 14:25] LABS: BARBITURATES, UR NEGATIVE (NEGATIVE); PHENCYCLIDINE, UR NEGATIVE (NEGATIVE)
[2018-10-18 14:53] LABS: BENZODIAZEPINES, UR POSITIVE (NEGATIVE); OPIATES, UR POSITIVE (NEGATIVE)
[2018-10-18] MEDS ORDERED: Albuterol HFA 90 mcg/actuation (8 g) IH PRN (18:49)
[2018-10-18] MEDS ORDERED: Albuterol-Ipratrop 3 mg / 0.5 (3 ml) UD INH PRN (19:11)
--- NOTE | 2018-10-18 19:20 | PCM.BM ---
<Dontrell Salazar - Last Filed: 10/18/18 19:17> Treatment Plan Problems - Problems identified on initial assessmt Anxiety Date Initiated: 10/18/18 Time Initiated: 18:20 Assessment reference: NA Status: Active Panic Attacks Date Initiated: 10/18/18 Time Initiated: 18:20 Assessment reference: NA Status: Active Altered Sleep Paterns Date Initiated: 10/18/18 Time Initiated: 18:20 Assessment reference: NA Status: Active Treatment assets and liabiliti Patient Assests: cooperative, resourceful, self-reliant, good support system Patient Liabilities: other (anxiety) - Milieu Protocol Maintain good personal hygiene: daily Encourage regular showers, daily Remind patient to perform daily oral care, daily Assist patient to perform ADL's Conduct patient checks and document Observation sheet: Q15 minutes Maintain personal safety: every shift Educate patient to report safety concerns to staff, every shift Monitor environment for contraband/sharps Medication safety: Monitor for expected outcome, potential side effects: every shift, Assess barriers to learning: every shift, Assess readiness for medication education: every shift <Jessika Alberto - Last Filed: 10/19/18 11:31> Family Contact Family involvement: Famliy/SO not involved - Goals for Treatment Patient goals for treatment: "I need a therapist." Discharge/Continuing Care - Education Needs Education Needs: Patient Medication, Patient Coping Skills - Discharge Discharge Criteria: Tolerates medication w/o severe side effects, No longer exhibiting s/s of withdrawal, Reduction of target symptoms Discharge to:: Home - Treatment Team Participation Discussed with Family/SO: No Was Patient/Family/SO present at Treatment Team Meeting: Yes
--- NOTE | 2018-10-19 12:18 | PCM.PSYCH ---
Initial Psychiatric Evaluation - Initial Psychiatric Evaluation Type of Admission: Voluntary Legal Status: Capacity Chief Complaint (in patient's own words): "Depressed" History of Present Illness and Precipitating Events: Patient is seen, chart reviewed and plan discussed with team. Patient is a 33 y/o WF, currently single with an eight year old son. She lives in an apartment with her son and her boyfriend (son's father). 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 She is currently detoxing from heroin, oxycodone and Xanax, last use 1-2 days ago. She has been using 4-5 bags of heroin IV per day, three oxycodone 30 mg and three Xanax per day. She has been using heroin for two years, Xanax and oxycodone for six years. She reports staying clean for three months in the past. She has been to rehab once in July 2018, and reports relapsing right after due to her mother passing away. Currently she is experiencing withdrawal symptoms of stomach ache, anxiety, lack of sleep and chills. COWS>10 She smokes cigarettes, 4-6 cigarettes per day. She denied any suicidal or homicidal ideations now. She has been feeling more depressed and anxious past few months, stating she is more isolated and does not want to leave her room. She had vague SI but no plan prior to admission. Upon discharge she would like to go home, but expressed interest in outpatient facilities. Of note, despite her claim that she was on Oxy and Xanax, according to online [place] [employer], she had a week supply only back in early August. In 2018 she had been on these meds. Psych Hx Depression and anxiety Fam Psych HX Denies Medications Gabapentin, Albuterol, Alprazolam, Oxycodone PMHx Herniated disk on back, slipped disk on neck, asthma Social hx Current smoker Trauma Denies Current Medications: Active Medications Generic Name Dose Route Start Last Admin Trade Name Freq PRN Reason Stop Dose Admin Albuterol 1 puff 10/18/18 18:49 Ventolin Hfa 90 Mcg/Actuation (8 G) IH Q8H PRN Shortness of Breath Albuterol/Ipratropium 3 ml 10/18/18 19:11 Duoneb 3 Mg/0.5 Mg (3 Ml) Ud INH RQ6 PRN Shortness of Breath Escitalopram Oxalate 10 mg 10/20/18 10:00 Lexapro PO DAILY SABA Gabapentin 300 mg 10/19/18 10:00 10/19/18 09:51 Neurontin PO 300 mg TID SABA Administration Lorazepam 1 mg 10/19/18 14:00 Ativan PO 10/20/18 10:01 TID SABA Lorazepam 1 mg 10/20/18 18:00 Ativan PO 10/21/18 10:01 BID SABA Tramadol HCl 50 mg 10/18/18 19:11 10/18/18 20:04 Ultram PO 50 mg Q6H PRN Administration Pain, moderate (4-7) Trazodone HCl 100 mg 10/18/18 22:00 10/18/18 21:18 Desyrel PO 100 mg HS SABA Administration Past Psychiatric History - Past Psychiatric History Previous Treatment History: Intensive Outpatient Pertinent Medical Hx (Current Medical&Sleep Prob, Allergies): Allergies Allergy/AdvReac Type Severity Reaction Status Date / Time No Known Allergies Allergy Verified 10/18/18 12:47 ALPRAZolam [Xanax] 1 mg PO TID 10/18/18 Albuterol HFA [Ventolin HFA 90 mcg/actuation (8 g)] 1 puff IH PRN PRN 10/18/18 Gabapentin [Neurontin] 300 mg PO TID 10/18/18 oxyCODONE [oxyCODONE Immediate Release Tab] 30 mg PO TID 10/18/18 Review of Systems - Psychiatric Psychiatric: Abnormal Sleep Pattern, Anhedonia, Anxiety, Behavioral Changes, Change in Appetite, Depression, Difficulty Concentrating, Irritability. absent: Hallucinations, Homicidal Ideation, Suicidal Ideation Mental Status Examination - Personal Presentation Personal Presentation: Looks stated age - Affect Affect: Constricted - Motor Activity Motor Activity: Calm - Reliability in Providing Information Reliability in Providing Information: Good - Speech Speech: Organized - Mood Mood: Depressed, Anxious - Formal Thought Process Formal Thought Process: No Impairment - Cognitive Functions Orientation: Person, Place, Situation, Time Sensorium: Alert Attention/Concentration: Easily distracted Estimate of Intelligence: Average Judgement: Intact, as evidence by: Insight regarding need for hospitalization Memory: Recent intact, as evidence by: Ability to recall events of the day, Remote intact, as evidenced by: Ability to recall historical events - Risk Risk: Withdrawal, Diminished functioning - Strength & Assets Inventory Strength & Assets Inventory: Cooperative - Limitations Limitations: Other DSM 5 DX - DSM 5 DSM 5 Diagnosis: Major Depression, recurrent Opioid withdrawal Opioid use d/o - severe YARON - Recommended/Plan of Treatment Treatment Recommendations and Plan of Treatment: Lexapro for depression Taper with ativan from benzos and methadone from opioids Gabapentin for augmentation As needed medications All risks, benefits and alternatives of the meds discussed, and the pt agreed and understood. Attend groups and activities Supportive therapy and psychoeducation TN for abstinence CBT for relapse prevention Encourage MAT Refer to rehab or IOP, and self-help groups Teach healthy lifestyle methods, i.e. diet, exercise, meditation Smoking cessation with TN Nicotine patch if needed 34 min Projected ELOS: 4-5 days - Smoking Cessation Smoking Cessation Initiated: Yes
--- NOTE | 2018-10-20 13:48 | PCM.PYCHPN ---
Psychiatric Progress Note - Psychiatric Progress Note Patient seen today, length of contact: 17 min Patient Chief Complaint: "Very anxious" Problems Identified/Issues Discussed: The pt is seen, chart reviewed, case is discussed with staff. The pt is compliant with medications and reports no side-effects. Symptoms are improving but needs more time to stabilize and to avoid relapse. Pt attends groups and activities. Support given, psycho-education provided. After care discussed. Medication Change: Yes (meds adjusted) Medical Record Reviewed: Yes Mental Status Examination - Cognitive Function Orientation: Person, Place, Situation, Time Memory: Intact Attention: WNL Concentration: Poor Association: WNL Fund of Knowledge: WNL - Mood Mood: Depressed, Anxious - Affect Affect: Constricted - Speech Speech: Appropriate - Formal Thought Process Formal Thought Process: No Impairment - Suicidal Ideation Suicidal Ideation: No - Homicidal Ideation Homicidal Ideation: No Goal/Treatment Plan - Goal/Treatment Plan Need for Continued Stay: Discharge may exacerbated symptoms, Severe functional impairment Progress Toward Problem(s) and Goals/Treatment Plan: Continue medications Support and psychoeducation daily Attend groups and activities daily Individual therapy After care planning by ANEUDY and the team
[2018-10-22 06:32] VITALS: RESP 20
--- NOTE | 2018-10-22 21:16 | PCM.PYCHPN ---
Psychiatric Progress Note - Psychiatric Progress Note Patient seen today, length of contact: 15 minutes Patient Chief Complaint: I am feeling little better. I still have body aches, decreased sleep and sweating. Problems Identified/Issues Discussed: Patient seen, chart reviewed, case discussed with the staff. Issues related to illness and treatment were discussed with the patient and staff. Reported compliant with treatment with no adverse effect. Tolerating treatment very well. Patient reported feeling little better as still having body aches, decreased sleep, and sweating. Mood reported as anxious. Affect appropriate. Patient needs more time for stabilization. Aftercare discussed with the patient. Patient denied any delusions, auditory or visual hallucinations, no suicidal ideations or homicidal ideations at the time of evaluation. Medical Problems: Asthma Diagnostic Results: Reviewed DSM 5 Symptoms Update: Some improvement with treatment. Medication Change: No Medical Record Reviewed: Yes Mental Status Examination - Cognitive Function Orientation: Person, Place, Situation, Time Memory: Intact Attention: WNL Concentration: WNL Association: WNL Fund of Knowledge: [facility] Decription of patient's judgement and insights: Fair - Mood Mood: Anxious - Affect Affect: Other (Appropriate) - Speech Speech: Appropriate - Formal Thought Process Formal Thought Process: No Impairment Psychotic Thoughts and Behaviors: None - Suicidal Ideation Suicidal Ideation: No - Homicidal Ideation Homicidal Ideation: No Goal/Treatment Plan - Goal/Treatment Plan Need for Continued Stay: Remain at risks for inpatient hospitalization, Discharge may exacerbated symptoms, Severe functional impairment Progress Toward Problem(s) and Goals/Treatment Plan: Patient/staff education. Supportive therapy. CBT for relapse prevention. OR for abstinence. Continue treatment as before. Patient wants to go to [place] [facility] for follow-up care after discharge from the hospital. Estimated Date of D/C: 10/24/18 - Smoking Cessation Smoking Cessation Initiated: No
--- NOTE | 2018-10-23 14:20 | PCM.PYCHPN ---
Psychiatric Progress Note - Psychiatric Progress Note Patient seen today, length of contact: 18 min Patient Chief Complaint: "Still not calmer" Problems Identified/Issues Discussed: The pt is seen, chart reviewed, case is discussed with staff. Support and psychoeducation given, CBT and MT used briefly The pt is improving slowly but needs more time due to severity of symptoms and relapse risk. No SEs from medications, risks discussed. After care discussed Medication Change: Yes (meds adjusted) Medical Record Reviewed: Yes Mental Status Examination - Cognitive Function Orientation: Person, Place, Situation, Time Memory: Intact Attention: WNL Concentration: Poor Association: WNL Fund of Knowledge: WNL - Mood Mood: Depressed, Anxious - Affect Affect: Constricted - Speech Speech: Appropriate - Formal Thought Process Formal Thought Process: No Impairment - Suicidal Ideation Suicidal Ideation: No - Homicidal Ideation Homicidal Ideation: No Goal/Treatment Plan - Goal/Treatment Plan Need for Continued Stay: Discharge may exacerbated symptoms, Severe functional impairment Progress Toward Problem(s) and Goals/Treatment Plan: Continue medications Support and psychoeducation daily Attend groups and activities daily Individual therapy After care planning by ANEUDY and the team Estimated Date of D/C: 10/24/18
[2018-10-24 06:20] VITALS: BP 129/64; PULSE 68; TEMP 97.6; O2SAT 96
--- NOTE | 2018-10-24 09:59 | PCM.PYCHDC ---
Mental Status Examination - Mental Status Examination Orientation: Person Discharge Summary - Discharge Note Consultations:: List each consultation separately and include: 1. Reason for request. 2. Findings. 3. Follow-up Summary of Hospital Course include:: 1. Description of specific treatment plan utilized for patients during their course of treatmen. 2. Summarize the time- course for resolution of acute symptoms and/or regressed behaviors. 3. Describe issues identified and worked on during hospitalization. 4. Describe medication utilized. 5. Describe medical problems identified and treated. 6. Reassessment of suicide risk Summary of Hospital Course: Patient is seen, chart reviewed and plan discussed with team. Patient is a 33 y/o WF, currently single with an eight year old son. She lives in an apartment with her son and her boyfriend (son's father). 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 She is currently detoxing from heroin, oxycodone and Xanax, last use 1-2 days ago. She has been using 4-5 bags of heroin IV per day, three oxycodone 30 mg and three Xanax per day. She has been using heroin for two years, Xanax and oxycodone for six years. She reports staying clean for three months in the past. She has been to rehab once in July 2018, and reports relapsing right after due to her mother passing away. Currently she is experiencing withdrawal symptoms of stomach ache, anxiety, lack of sleep and chills. COWS>10 She smokes cigarettes, 4-6 cigarettes per day. She denied any suicidal or homicidal ideations now. She has been feeling more depressed and anxious past few months, stating she is more isolated and does not want to leave her room. She had vague SI but no plan prior to admission. Upon discharge she would like to go home, but expressed interest in outpatient facilities. Of note, despite her claim that she was on Oxy and Xanax, according to online [place] [employer], she had a week supply only back in early August. In 2018 she had been on these meds. Psych Hx Depression and anxiety Fam Psych HX Denies Medications Gabapentin, Albuterol, Alprazolam, Oxycodone PMHx Herniated disk on back, slipped disk on neck, asthma Social hx Current smoker Trauma Denies She says she will go to [place] [facility] b/c it is closer than [facility]. She is advised that they don't have enough psych component and that she should consider [facility] too. - Final Diagnosis (DSM 5) Condition upon Discharge: STABLE Disposition: HOME/ ROUTINE Follow-up Treatment Plan: Continue medications Support and psychoeducation daily Attend groups and activities daily Individual therapy After care planning by SW and the team Prescriptions/Medication Reconciliation: Albuterol HFA [Ventolin HFA 90 mcg/actuation (8 g)] 1 puff IH PRN PRN #1 inhaler PRN Reason: Shortness Of Breath Escitalopram [Lexapro] 10 mg PO DAILY #30 tab Gabapentin [Neurontin] 300 mg PO TID #90 cap hydrOXYzine HCl [Atarax] 25 mg PO BID PRN #60 tab PRN Reason: Anxiety QUEtiapine [Seroquel] 100 mg PO HS #30 tab traZODone [Desyrel] 100 mg PO HS #30 tab
== END 2018-10-24 10:39 | disposition home or self-care (01) | DRG 895 ==
LOC: C.ER 12:31 → C.5E 16:45
PROVIDERS: ADMIT Psychiatry & Neurology Psychiatry; ATTEND Psychiatry & Neurology Psychiatry
PROC: HZ52ZZZ Individual Psychotherapy for Substance Abuse Treatment, Cognitive-Behavioral (ICD-10-PCS; principal; 2018-10-18)
PROC: HZ2ZZZZ Detoxification Services for Substance Abuse Treatment (ICD-10-PCS; 2018-10-18)
PROC: HZ59ZZZ Individual Psychotherapy for Substance Abuse Treatment, Supportive (ICD-10-PCS; 2018-10-18)
PROC: HZ56ZZZ Individual Psychotherapy for Substance Abuse Treatment, Psychoeducation (ICD-10-PCS; 2018-10-18)
PROC: HZ46ZZZ Group Counseling for Substance Abuse Treatment, Psychoeducation (ICD-10-PCS; 2018-10-18)
PROC: GZHZZZZ Group Psychotherapy (ICD-10-PCS; 2018-10-18)
PROC: GZ58ZZZ Individual Psychotherapy, Cognitive-Behavioral (ICD-10-PCS; 2018-10-18)
PROC: GZ56ZZZ Individual Psychotherapy, Supportive (ICD-10-PCS; 2018-10-18)
PROC: HZ42ZZZ Group Counseling for Substance Abuse Treatment, Cognitive-Behavioral (ICD-10-PCS; 2018-10-18)
DX: F11.23 Opioid dependence with withdrawal (principal); F33.9 Major depressive disorder, recurrent, unspecified; R45.851 Suicidal ideations; F17.210 Nicotine dependence, cigarettes, uncomplicated; J44.9 Chronic obstructive pulmonary disease, unspecified; F41.1 Generalized anxiety disorder; N18.9 Chronic kidney disease, unspecified; Z87.442 Personal history of urinary calculi

== ENCOUNTER 2018-11-15 16:49 | Inpatient (IN) | payer BC ==
[2018-11-15 16:49] VITALS: BMI 23.3
[2018-11-15 18:24] LABS: BASO # 0.1 K/uL (0.0-0.2); BASO % 0.6 % (0.0-2.0); EOS # 0.1 K/uL (0.0-0.7); EOS % 0.8 % (0.0-4.0); HEMOGLOBIN 13.7 g/dL (11.0-16.0); LYMPH # 2.4 K/uL (1.0-4.3); LYMPH % 19.9 % (20.0-40.0); MEAN CELL VOLUME 89.6 fL (81.0-99.0); MEAN CORPUSCULAR HEMOGLOBIN 29.8 pg (27.0-31.0); MEAN CORPUSCULAR HGB CONC 33.3 g/dL (33.0-37.0); MEAN PLATELET VOLUME 7.7 fL (7.2-11.7); MONO # 1.2 K/uL (0.0-0.8); MONO % 9.9 % (0.0-10.0); NEUT # 8.3 K/uL (1.8-7.0); NEUT % 68.8 % (50.0-75.0); NRBC % 0.1 % (0.0-2.0); RBC 4.6 Mil/uL (3.80-5.20); RED CELL DISTRIBUTION WIDTH 13.9 % (11.5-14.5); WHITE BLOOD COUNT 12.1 K/uL (4.8-10.8)
--- NOTE | 2018-11-15 18:35 | C.PDOC ---
History Of Present Illness The patient is a 33-year-old female whose past medical history includes depression and anxiety, and was prescribed Lexapro, Trazodone and Seroquil last month by Dr. Diamond. Patient presents to the ED today stating the medications have not been working, she has not been sleeping for a few days and would like to check herself into the psych aguilar. Patient denies denies suicidal/homicidal ideation or auditory hallucinations at this time. <Manuela Ramos - Last Filed: 11/15/18 19:11> History Per: Patient History/Exam Limitations: no limitations Onset/Duration Of Symptoms: Hrs Current Symptoms Are (Timing): Still Present Associated Symptoms: Anxiety, Depression. denies: Suicidal Thoughts, Suicidal Plan Involuntary Hold By: None Recent travel outside of the [place]: No Additional History Per: Patient <Manuela Ramos - Last Filed: 11/15/18 19:11> <Cassidy Tovar - Last Filed: 11/15/18 20:02> Time Seen by Provider: 11/15/18 17:19 Chief Complaint (Nursing): Psychiatric Evaluation Past Medical History Reviewed: Historical Data, Nursing Documentation, Vital Signs Vital Signs: Last Vital Signs Temp 98 F 11/15/18 17:01 Pulse 103 H 11/15/18 17:01 Resp 16 11/15/18 17:01 BP 91/61 L 11/15/18 17:01 Pulse Ox 99 11/15/18 17:01 Primary Care Provider: Willis Rubio - Medical History PMH: Anemia, Anxiety, Asthma, Back Problems, COPD, Depression, Kidney Stones, Chronic Kidney Disease (kidney stones), Chronic Pain Denies: Bipolar Disorder, Diabetes, Hepatitis, HIV, HTN, Seizures, Sexually Transmitted Disease Surgical History: Cholecystectomy - [facility] CYSTOSCOPY NEC (07/30/13) DESTRUCTION OF RIGHT OVARY, PERCUTANEOUS ENDOSCOPIC APPROACH (05/12/16) DETOXIFICATION SERVICES FOR SUBSTANCE ABUSE TREATMENT (10/18/18) GROUP PRODUCT ARCHITECT FOR SUBSTANCE ABUSE TREATMENT, PSYCHOEDUCATION (10/18/18) GROUP PRODUCT ARCHITECT FOR SUBSTANCE ABUSE, COGNITIVE BEHAVIORAL (10/18/18) GROUP PSYCHOTHERAPY (10/18/18) INDIV PSYCHOTHERAPY FOR SUBSTANCE ABUSE TREATMENT, SUPPORT (10/18/18) INDIV PSYCHOTHERAPY FOR SUBSTANCE ABUSE, COGNITIV BEHAVIORAL (10/18/18) INDIV PSYCHOTHERAPY FOR SUBSTANCE ABUSE, MOTIVATION ENHANCE (04/01/18) INDIV PSYCHOTHERAPY FOR SUBSTANCE ABUSE, PSYCHOEDUCATION (10/18/18) INDIVIDUAL PSYCHOTHERAPY, COGNITIVE-BEHAVIORAL (10/18/18) INDIVIDUAL PSYCHOTHERAPY, SUPPORTIVE (10/18/18) INFLUENZA VACCINATION (07/30/13) NEBULIZER THERAPY (07/30/13) OTHER SKIN & SUBQ I D (07/13/13) RELEASE LEFT LARGE INTESTINE, PERC ENDO APPROACH (05/12/16) TETANUS TOXOID ADMINIST (07/13/13) TU REMOV URETER OBSTRUCT (08/29/13) URETERAL CATHETERIZATION (08/29/13) URETEROSCOPY (07/30/13) Family History: States: Hypertension - Social History Hx Tobacco Use: No Hx Alcohol Use: No Hx Substance Use: Yes - Immunization History Hx Tetanus Toxoid Vaccination: No Hx Influenza Vaccination: Yes (april 2018) Hx Pneumococcal Vaccination: No <Manuela Ramos - Last Filed: 11/15/18 19:11> Vital Signs: Last Vital Signs Temp 97.6 F 11/15/18 19:00 Pulse 100 H 11/15/18 19:00 Resp 16 11/15/18 19:00 BP 91/61 L 11/15/18 19:00 Pulse Ox 99 11/15/18 19:11 - [facility] Procedures CYSTOSCOPY NEC (07/30/13) DESTRUCTION OF RIGHT OVARY, PERCUTANEOUS ENDOSCOPIC APPROACH (05/12/16) DETOXIFICATION SERVICES FOR SUBSTANCE ABUSE TREATMENT (10/18/18) GROUP PRODUCT ARCHITECT FOR SUBSTANCE ABUSE TREATMENT, PSYCHOEDUCATION (10/18/18) GROUP PRODUCT ARCHITECT FOR SUBSTANCE ABUSE, COGNITIVE BEHAVIORAL (10/18/18) GROUP PSYCHOTHERAPY (10/18/18) INDIV PSYCHOTHERAPY FOR SUBSTANCE ABUSE TREATMENT, SUPPORT (10/18/18) INDIV PSYCHOTHERAPY FOR SUBSTANCE ABUSE, COGNITIV BEHAVIORAL (10/18/18) INDIV PSYCHOTHERAPY FOR SUBSTANCE ABUSE, MOTIVATION ENHANCE (04/01/18) INDIV PSYCHOTHERAPY FOR SUBSTANCE ABUSE, PSYCHOEDUCATION (10/18/18) INDIVIDUAL PSYCHOTHERAPY, COGNITIVE-BEHAVIORAL (10/18/18) INDIVIDUAL PSYCHOTHERAPY, SUPPORTIVE (10/18/18) INFLUENZA VACCINATION (07/30/13) NEBULIZER THERAPY (07/30/13) OTHER SKIN & SUBQ I D (07/13/13) RELEASE LEFT LARGE INTESTINE, PERC ENDO APPROACH (05/12/16) TETANUS TOXOID ADMINIST (07/13/13) TU REMOV URETER OBSTRUCT (08/29/13) URETERAL CATHETERIZATION (08/29/13) URETEROSCOPY (07/30/13) <Cassidy Tovar - Last Filed: 11/15/18 20:02> Review Of Systems Psych: Positive for: Anxiety, Depression <Manuela Ramos - Last Filed: 11/15/18 19:11> Physical Exam - Physical Exam Appears: Non-toxic, No Acute Distress Skin: Normal Color, Warm, Dry Head: Atraumatic, Normacephalic Eye(s): bilateral: Normal Inspection Oral Mucosa: Moist Neck: Supple Chest: Symmetrical, No Deformity, No Tenderness Cardiovascular: Rhythm Regular, No Murmur Respiratory: No Rales, No Rhonchi, No Wheezing Extremity: Normal ROM, Capillary Refill (less than 2 seconds ) Neurological/Psych: Oriented x3, Normal Speech, Normal Cognition <Manuela Ramos - Last Filed: 11/15/18 19:11> ED Course And Treatment - Laboratory Results Result Diagrams: 11/15/18 18:19 11/15/18 18:19 O2 Sat by Pulse Oximetry: 99 (on RA) Pulse Ox Interpretation: Normal <Manuela Ramos - Last Filed: 11/15/18 19:11> - Laboratory Results Result Diagrams: 11/15/18 18:19 11/15/18 18:19 Lab Results: Total Bilirubin 0.2 mg/dL (0.2-1.3) 11/15/18 18: AST 19 U/L (14-36) 11/15/18 18: ALT 10 U/L (9-52) 11/15/18 18:19 Alkaline Phosphatase 58 U/L (38-126) 11/15/18 18: Total Protein 7.9 g/dL (6.3-8.3) 11/15/18 18: Albumin 4.4 g/dL (3.5-5.0) 11/15/18 18:19 Globulin 3.4 gm/dL (2.2-3.9) 11/15/18 18:19 Albumin/Globulin Ratio 1.3 (1.0-2.1) 11/15/18 18:19 Urine Color Krystina (YELLOW) 11/15/18 19:05 Urine Clarity Hazy (Clear) 11/15/18 19:05 Urine pH 7.0 (5.0-8.0) 11/15/18 19:05 Ur Specific [place] 1.023 (1.003-1.030) 11/15/18 19:05 Urine Protein 1+ mg/dL (NEGATIVE) H 11/15/18 19:05 Urine Glucose (UA) Normal mg/dL (Normal) 11/15/18 19:05 Urine Ketones 1+ mg/dL (NEGATIVE) H 11/15/18 19:05 Urine Blood Negative (NEGATIVE) 11/15/18 19:05 Urine Nitrate Negative (NEGATIVE) 11/15/18 19:05 Urine Bilirubin Negative (NEGATIVE) 11/15/18 19:05 Urine Urobilinogen Normal mg/dL (0.2-1.0) 11/15/18 19:05 Ur Leukocyte Esterase Trace Angel/uL (Negative) H 11/15/18 19:05 Urine WBC (Auto) 15 /hpf (0-5) H 11/15/18 19:05 Urine RBC (Auto) 1 /hpf (0-3) 11/15/18 19:05 Ur Squamous Epith Cells 7 /hpf (0-5) H 11/15/18 19:05 Urine Bacteria Occ (<OCC) H 11/15/18 19:05 Hyaline Casts 11-20 /lpf (0-2) H 11/15/18 19:05 <Cassidy Tovar - Last Filed: 11/15/18 20:02> Medical Decision Making Medical Decision Making: Progress: Bloodwork and urinalysis ordered and reviewed. 185 pt found to have low potassium; 40 meq ordered po; pt should get potassium rechecked in 1-2 days. will s/o to oncoming team for dispo to psychiatry after medically cleared. <Manuela Ramos - Last Filed: 11/15/18 19:11> Disposition - Disposition Disposition Time: 19:00 <Manuela Ramos - Last Filed: 11/15/18 19:11> Discussed With : Gilles Zapien Comment: accepted the pt on his service and took over the care at 8PM Doctor Will See Patient In The: Hospital Counseled Patient/Family Regarding: Studies Performed, Diagnosis - POA Present On Arrival: None <Cassidy Tovar - Last Filed: 11/15/18 20:02> - Disposition Disposition: HOSPITALIZED Condition: FAIR Forms: [facility] (Nigerien) - Clinical Impression Clinical Impression: Anxiety, generalized, Depression, major - PA / EMISSIONS TESTING TECHNICIAN / Resident Statement MD/DO has reviewed & agrees with the documentation as recorded. - Scribe Statement The provider has reviewed the documentation as recorded by the Scribe (Felecia Olson) All medical record entries made by the Scribe were at my direction and personally dictated by me. I have reviewed the chart and agree that the record accurately reflects my personal performance of the history, physical exam, medical decision making, and the department course for this patient. I have also personally directed, reviewed, and agree with the discharge instructions and disposition. <Manuela Ramos - Last Filed: 11/15/18 19:11> Physician Patient Turnover Patient Signed Over To: Cassidy Tovar Handoff Comments: admit to psych Dr Zapien when medically cleared. <Manuela Ramos - Last Filed: 11/15/18 19:11> Decision To Admit <Manuela Ramos - Last Filed: 11/15/18 19:11> - Pt Status Changed To: Hospital Disposition Of: Inpatient - Admit Certification Admit to Inpatient:: After my assessment, the patient will require hospitalization for at least two midnights. This is because of the severity of symptoms shown, intensity of services needed, and/or the medical risk in this patient being treated as an outpatient. - InPatient: Physician Admission Certification: I certify that this patient requires 2 or more midnights of care for the following reason:: After my assessment, the patient will require hospitalization for at least two midnights. This is because of the severity of symptoms shown, intensity of services needed, and/or the medical risk in this patient being treated as an outpatient. - . Bed Request Type: Psychiatry Admitting Physician: Gilles Zapien <Cassidy Tovar - Last Filed: 11/15/18 20:02> - . Patient Diagnosis: Anxiety, generalized, Depression, major
[2018-11-15 18:46] LABS: ALB/GLOB RATIO 1.3 (1.0-2.1); ALBUMIN 4.4 g/dL (3.5-5.0); ALT/SGPT 10 U/L (9-52); AST/SGOT 19 U/L (14-36); BLOOD UREA NITROGEN 11 mg/dL (7-17); CALCIUM 9.2 mg/dl (8.6-10.4); GFR NON-AFRICAN AMERICAN > 60
[2018-11-15] MEDS ORDERED: Potassium Chloride 20 mEq ER Tab PO STA (18:52)
[2018-11-15] MEDS ORDERED: Potassium Chloride 20 mEq ER Tab PO ONE (19:08)
[2018-11-15 19:14] LABS: SQUAMOUS EPITHIAL 7 /hpf (0-5); URINE BILIRUBIN NEGATIVE (NEGATIVE); URINE BLOOD NEGATIVE (NEGATIVE); URINE CLARITY Hazy (Clear); URINE COLOR Amber (YELLOW); URINE GLUCOSE (UA) NORMAL (Normal); URINE PROTEIN 1+ mg/dL (NEGATIVE); URINE UROBILINOGEN NORMAL mg/dL (0.2-1.0)
[2018-11-15 19:16] LABS: URINE BACTERIA OCC (<OCC); URINE LEUKOCYTE ESTERASE TRACE Leu/uL (Negative)
[2018-11-15 19:26] LABS: BARBITURATES, UR NEGATIVE (NEGATIVE); BENZODIAZEPINES, UR NEGATIVE (NEGATIVE); PHENCYCLIDINE, UR NEGATIVE (NEGATIVE)
[2018-11-15 20:07] LABS: OPIATES, UR POSITIVE (NEGATIVE)
--- NOTE | 2018-11-15 20:34 | PCM.BM ---
<Johanna Andrade - Last Filed: 11/15/18 20:31> Treatment Plan Problems - Problems identified on initial assessmt Feelings Worthlessness Date Initiated: 11/15/18 Time Initiated: 20:34 Assessment reference: NA Status: Active Self Care Deficit Date Initiated: 11/15/18 Time Initiated: 20:34 Assessment reference: NA Status: Active Social Isolation Date Initiated: 11/15/18 Time Initiated: 20:35 Assessment reference: NA Status: Active Treatment assets and liabiliti Patient Assests: adapts well, cooperative, resourceful, self-reliant, good support system, negotiates basic needs, cognitively intact Patient Liabilities: substance abuse (Opiates, THc), medical problems (Asthma, COPD, Kidney Stones) - Milieu Protocol Maintain good personal hygiene: daily Encourage regular showers, daily Remind patient to perform daily oral care, daily Assist patient to perform ADL's (Self care), other Assist patient to perform ADL's Conduct patient checks and document Observation sheet: Q15 minutes (For safety) Maintain personal safety: every shift Educate patient to report safety concerns to staff, every shift Monitor environment for contraband/sharps Medication safety: Monitor for expected outcome, potential side effects: every shift, Assess barriers to learning: every shift, Assess readiness for medication education: every shift <Sandy Diamond - Last Filed: 11/16/18 11:00> - Diagnosis (1) Bipolar disorder Status: Acute Interventions: 11/16/18 11:01 * Assess/adjust medications daily and /or as needed * See patient on an individual basis 7x/week to assess level of manic behaviors and stability * Discuss risks, benefits, side effects and alternatives of medications * (2) Opioid use disorder, severe, dependence Status: Acute Interventions: 11/16/18 11:01 * Assess 7x/week regarding severity of withdrawal * Educate regarding risks, benefits, side effects and alternatives of medications * Use Motivational Interviewing for abstinence * Use CBT for relapse prevention * Medication management for withdrawal symptoms * Encourage medication assisted treatment * <Alannah Kc - Last Filed: 11/16/18 11:45> Family Contact Family involvement: Patient does not wish Family/SO involvement Family contact: Patient declines to allow family contact at present - Goals for Treatment Patient goals for treatment: "I want to go to [facility]." Discharge/Continuing Care - Education Needs Education Needs: Patient Medication, Patient Diagnosis/Disease Process, Patient Coping Skills, Patient Placement options, Patient Community resources - Discharge Discharge Criteria: Free of Suicidal thoughts, Free of agitation, Normal sleep pattern, Ability to care for self, No longer exhibiting s/s of withdrawal, Reduction of target symptoms Discharge to:: Home, With Family - Treatment Team Participation Discussed with Family/SO: No Was Patient/Family/SO present at Treatment Team Meeting: Yes
--- NOTE | 2018-11-16 10:21 | PCM.PSYCH ---
Initial Psychiatric Evaluation - Initial Psychiatric Evaluation Type of Admission: Voluntary Legal Status: Capacity Chief Complaint (in patient's own words): I was feeling increasingly depressed.' History of Present Illness and Precipitating Events: Pt is a 33 years old HF, who is currently unemployed, presented to [facility] with increasingly irritable and depressed mood. Patient reports history of multiple inpatient psychiatric hospitalizations , she was last discharged from [facility] last month. She reports that she could not follow-up with a psychiatrist at the [facility] as she relapsed on drugs and started abusing increasing amount of heroin and cannabis. Patient reports that he stopped taking medications and yesterday she abused more than 5 bags of heroin, became increasingly depressed and irritable and came to the hospital to get help. Patient reports depressed mood, feelings of hopelessness and helplessness. She also reports poor sleep and anhedonia. She reports at times irritability, agitation and racing thoughts. She reports withdrawal symptoms including cramps, nausea, headaches, joint pains, anxiety and sweats. She denies any auditory or visual hallucinations or any paranoia. Past medical history None reported Current Medications: Active Medications Generic Name Dose Route Start Last Admin Trade Name Freq PRN Reason Stop Dose Admin Pneumococcal Polyvalent Vaccine 0.5 ml 11/18/18 10:00 Pneumovax 23 Vaccine IM 11/18/18 10:01 .ONCE ONE Past Psychiatric History - Past Psychiatric History Previous Treatment History: Inpatient Pertinent Medical Hx (Current Medical&Sleep Prob, Allergies): Allergies Allergy/AdvReac Type Severity Reaction Status Date / Time No Known Allergies Allergy Verified 11/15/18 17:00 ALPRAZolam [Xanax] 1 mg PO TID 10/18/18 oxyCODONE [oxyCODONE Immediate Release Tab] 30 mg PO TID 10/18/18 Albuterol HFA [Ventolin HFA 90 mcg/actuation (8 g)] 1 puff IH PRN PRN #1 inhaler 10/24/18 Escitalopram [Lexapro] 10 mg PO DAILY #30 tab 10/24/18 Gabapentin [Neurontin] 300 mg PO TID #90 cap 10/24/18 QUEtiapine [Seroquel] 100 mg PO HS #30 tab 10/24/18 hydrOXYzine HCl [Atarax] 25 mg PO BID PRN #60 tab 10/24/18 traZODone [Desyrel] 100 mg PO HS #30 tab 10/24/18 Review of Systems - Review of Systems All systems: reviewed and no additional remarkable complaints except - Psychiatric Psychiatric: Anxiety, Irritability, Mood Swings Mental Status Examination - Personal Presentation Personal Presentation: Looks stated age - Affect Affect: Broad - Motor Activity Motor Activity: Psychomotor Agitation - Reliability in Providing Information Reliability in Providing Information: Fair - Speech Speech: Organized - Mood Mood: Depressed, Anxious - Formal Thought Process Formal Thought Process: No Impairment - Obsessions/Compulsions Obsessions: No Compulsions: No - Cognitive Functions Orientation: Person, Place, Situation, Time Sensorium: Alert Attention/Concentration: Attentive Abstract Thinking: [place] Estimate of Intelligence: Below average Judgement: Imparied, as evidence by: Poor judgement, Imparied, as evidence by: Lack of insight into illness - Risk Risk: Withdrawal, Diminished functioning - Strength & Assets Inventory Strength & Assets Inventory: Family support DSM 5 DX - DSM 5 DSM 5 Diagnosis: Bipolar depressed severe without psychotic features Opioid use disorder severe Opioid withdrawal Cannabis use disorder severe - Recommended/Plan of Treatment Treatment Recommendations and Plan of Treatment: Bipolar depressed severe without psychotic features Opioid use disorder severe Opioid withdrawal Cannabis use disorder severe CBT Supportive therapy Psychoeducation Methadone taper Trazodone for insomnia Hydroxyzine for anxiety Neurontin for augmentation Seroquel for insomnia - Smoking Cessation Smoking Cessation Initiated: No
[2018-11-16] MEDS ORDERED: Albuterol 0.083% Inhal Sol (2.5 mg/3 mL) UD INH PRN (10:24)
[2018-11-16] MEDS ORDERED: Aluminum Hydroxide/Magnesium Hydroxide Susp (30 mL) PO PRN (11:02)
--- NOTE | 2018-11-17 16:19 | PCM.PYCHPN ---
Psychiatric Progress Note - Psychiatric Progress Note Patient seen today, length of contact: 15 min Patient Chief Complaint: I m feeling depressed.' Problems Identified/Issues Discussed: Patient was seen and evaluated, chart reviewed and discussed the staff. Patient reports depressed mood and feelings of hopelessness and helplessness. She still reports irritability agitation and racing thoughts. She still reports withdrawal symptoms including cramps, joint pain, anxiety, headaches and sweating. She is taking medication but denies any side effects. She needs to stay longer for the stabilization of the symptoms. Supportive therapy was provided. Medication Change: Yes Medical Record Reviewed: Yes Mental Status Examination - Cognitive Function Orientation: Person, Place, Situation, Time Memory: Intact Attention: WNL Concentration: Poor Association: WNL Fund of Knowledge: Poor - Mood Mood: Depressed, Anxious - Affect Affect: Constricted, Depressed - Speech Speech: Soft - Formal Thought Process Formal Thought Process: No Impairment - Suicidal Ideation Suicidal Ideation: No - Homicidal Ideation Homicidal Ideation: No Goal/Treatment Plan - Goal/Treatment Plan Need for Continued Stay: Remain at risks for inpatient hospitalization Progress Toward Problem(s) and Goals/Treatment Plan: Bipolar depressed severe without psychotic features Opioid use disorder severe Opioid withdrawal Sedative/hypnotic use disorder severe CBT Supportive therapy Psychoeducation Methadone taper Trazodone for insomnia Hydroxyzine for anxiety Neurontin for augmentation Seroquel for insomnia
[2018-11-18] MEDS ORDERED: Pneumococcal 23-Valent Vaccine IM ONE (10:00)
--- NOTE | 2018-11-18 22:11 | PCM.PYCHPN ---
Psychiatric Progress Note - Psychiatric Progress Note Patient seen today, length of contact: 15 min Patient Chief Complaint: I m feeling depressed.' Problems Identified/Issues Discussed: Patient was seen and evaluated, chart reviewed and discussed the staff. She still reports irritability agitation and reports withdrawal symptoms including cramps, joint pain, anxiety, headaches and sweating. Patient reports depressed mood and feelings of hopelessness and helplessness. She is taking medication but denies any side effects. She needs to stay longer for the stabilization of the symptoms. Supportive therapy was provided. Medication Change: Yes Medical Record Reviewed: Yes Mental Status Examination - Cognitive Function Orientation: Person, Place, Situation, Time Memory: Intact Attention: WNL Concentration: Poor Association: WNL Fund of Knowledge: Poor - Mood Mood: Depressed, Anxious - Affect Affect: Constricted, Depressed - Speech Speech: Soft - Formal Thought Process Formal Thought Process: No Impairment - Suicidal Ideation Suicidal Ideation: No - Homicidal Ideation Homicidal Ideation: No Goal/Treatment Plan - Goal/Treatment Plan Need for Continued Stay: Remain at risks for inpatient hospitalization Progress Toward Problem(s) and Goals/Treatment Plan: Bipolar depressed severe without psychotic features Opioid use disorder severe Opioid withdrawal Sedative/hypnotic use disorder severe CBT Supportive therapy Psychoeducation Methadone taper Trazodone for insomnia Hydroxyzine for anxiety Neurontin for augmentation Seroquel for insomnia
--- NOTE | 2018-11-19 12:01 | PCM.PYCHPN ---
Psychiatric Progress Note - Psychiatric Progress Note Patient seen today, length of contact: 15 min Patient Chief Complaint: "My sleep is bad" Problems Identified/Issues Discussed: The pt is seen again, chart reviewed, and case is discussed with the team. The pt denies any side-effects from meds. Attends activities and groups, brief individual therapy provided Not ready for discharge due to ongoing symptoms and high relapse risk. After care discussed again. Medication Change: No Medical Record Reviewed: Yes Mental Status Examination - Cognitive Function Orientation: Person, Place, Situation, Time Memory: Intact Attention: WNL Concentration: Poor Association: WNL Fund of Knowledge: Poor - Mood Mood: Depressed, Anxious - Affect Affect: Constricted, Depressed - Speech Speech: Soft - Formal Thought Process Formal Thought Process: No Impairment - Suicidal Ideation Suicidal Ideation: No - Homicidal Ideation Homicidal Ideation: No Goal/Treatment Plan - Goal/Treatment Plan Need for Continued Stay: Severe depression anxiety, Discharge may exacerbated symptoms, Severe functional impairment Progress Toward Problem(s) and Goals/Treatment Plan: Continue medications Support and psychoeducation daily Attend groups and activities daily Individual therapy After care planning by ANEUDY and the team
[2018-11-20 06:54] VITALS: BP 84/56; PULSE 75; RESP 20; TEMP 97.5; O2SAT 98
--- NOTE | 2018-11-20 10:19 | PCM.PYCHDC ---
Mental Status Examination - Mental Status Examination Orientation: Person Discharge Summary - Discharge Note Consultations:: List each consultation separately and include: 1. Reason for request. 2. Findings. 3. Follow-up Summary of Hospital Course include:: 1. Description of specific treatment plan utilized for patients during their course of treatmen. 2. Summarize the time- course for resolution of acute symptoms and/or regressed behaviors. 3. Describe issues identified and worked on during hospitalization. 4. Describe medication utilized. 5. Describe medical problems identified and treated. 6. Reassessment of suicide risk Summary of Hospital Course: She left a day early bc of mother's day. Seroquel is increased to 300 mng as she was on it before Risks discussed F/u will be at [facility] IOP - Final Diagnosis (DSM 5) Condition upon Discharge: FAIR Disposition: HOME/ ROUTINE Follow-up Treatment Plan: Continue medications Support and psychoeducation daily Attend groups and activities daily Individual therapy After care planning by SW and the team Prescriptions/Medication Reconciliation: Gabapentin [Neurontin] 300 mg PO TID #90 cap QUEtiapine [Seroquel] 300 mg PO HS #30 tab
== END 2018-11-20 11:11 | disposition home or self-care (01) | DRG 885 ==
LOC: C.ER 16:49 → C.5E 20:00
PROC: HZ2ZZZZ Detoxification Services for Substance Abuse Treatment (ICD-10-PCS; principal; 2018-11-15)
PROC: HZ52ZZZ Individual Psychotherapy for Substance Abuse Treatment, Cognitive-Behavioral (ICD-10-PCS; 2018-11-15)
PROC: HZ59ZZZ Individual Psychotherapy for Substance Abuse Treatment, Supportive (ICD-10-PCS; 2018-11-15)
PROC: HZ56ZZZ Individual Psychotherapy for Substance Abuse Treatment, Psychoeducation (ICD-10-PCS; 2018-11-15)
PROC: HZ42ZZZ Group Counseling for Substance Abuse Treatment, Cognitive-Behavioral (ICD-10-PCS; 2018-11-15)
PROC: HZ46ZZZ Group Counseling for Substance Abuse Treatment, Psychoeducation (ICD-10-PCS; 2018-11-15)
PROC: GZHZZZZ Group Psychotherapy (ICD-10-PCS; 2018-11-15)
PROC: GZ58ZZZ Individual Psychotherapy, Cognitive-Behavioral (ICD-10-PCS; 2018-11-15)
PROC: GZ56ZZZ Individual Psychotherapy, Supportive (ICD-10-PCS; 2018-11-15)
DX: F31.4 Bipolar disorder, current episode depressed, severe, without psychotic features (principal); F11.23 Opioid dependence with withdrawal; F13.20 Sedative, hypnotic or anxiolytic dependence, uncomplicated; F12.20 Cannabis dependence, uncomplicated; F41.1 Generalized anxiety disorder; G47.00 Insomnia, unspecified; N18.9 Chronic kidney disease, unspecified; J44.9 Chronic obstructive pulmonary disease, unspecified

== ENCOUNTER 2018-12-06 17:00 | Emergency (ER) | payer BC ==
[2018-12-06 17:09] VITALS: BMI 26.1
[2018-12-06 17:11] VITALS: BP 124/82; PULSE 90; RESP 18; TEMP 99; O2SAT 100
--- NOTE | 2018-12-06 17:14 | C.PDOC ---
History Of Present Illness Patient is a 33 year old female, with a PMHx of anemia, depression, asthma, kidney stones, and cholecystectomy, who presents to the ED c/o worsening depression over the past week. Patient reports feeling depressed over the past few months, but notes it has worsened after a friend . She states that she wonders what other people would think if she wasn't around. She denies any suicidal attempt or suicidal ideation at this time. Patient notes only taking Seroquel and has been complaint. She denies any fever, chills, neck stiffness, night sweats, CP, SOB, or overdosing on medications. Time Seen by Provider: 12/06/18 17:14 Chief Complaint (Nursing): Psychiatric Evaluation History Per: Patient History/Exam Limitations: no limitations Onset/Duration Of Symptoms: Days (one week) Current Symptoms Are (Timing): Still Present Suicide/Self Injury Attempted (Context): None Associated Symptoms: Depression. denies: Suicidal Thoughts, Suicidal Plan Recent travel outside of the [place]: No Additional History Per: Patient Past Medical History Reviewed: Historical Data, Nursing Documentation, Vital Signs Vital Signs: Last Vital Signs Temp 99.0 F 12/06/18 17:09 Pulse 90 12/06/18 17:09 Resp 18 12/06/18 17:09 BP 124/82 12/06/18 17:09 Pulse Ox 100 12/06/18 17:09 Primary Care Provider: FAMILY PROVIDER,NO - Medical History PMH: Anemia, Anxiety, Asthma, Back Problems, Bipolar Disorder, COPD, Depression, Kidney Stones, Chronic Kidney Disease (kidney stones), Chronic Pain Denies: Diabetes, Hepatitis, HIV, HTN, Seizures, Sexually Transmitted Disease Surgical History: Cholecystectomy - [facility] Procedures CYSTOSCOPY NEC (07/30/13) DESTRUCTION OF RIGHT OVARY, PERCUTANEOUS ENDOSCOPIC APPROACH (05/12/16) DETOXIFICATION SERVICES FOR SUBSTANCE ABUSE TREATMENT (11/15/18) GROUP ENTRY LEVEL BUYER FOR SUBSTANCE ABUSE TREATMENT, PSYCHOEDUCATION (11/15/18) GROUP ENTRY LEVEL BUYER FOR SUBSTANCE ABUSE, COGNITIVE BEHAVIORAL (11/15/18) GROUP PSYCHOTHERAPY (11/15/18) INDIV PSYCHOTHERAPY FOR SUBSTANCE ABUSE TREATMENT, SUPPORT (11/15/18) INDIV PSYCHOTHERAPY FOR SUBSTANCE ABUSE, COGNITIV BEHAVIORAL (11/15/18) INDIV PSYCHOTHERAPY FOR SUBSTANCE ABUSE, MOTIVATION ENHANCE (04/01/18) INDIV PSYCHOTHERAPY FOR SUBSTANCE ABUSE, PSYCHOEDUCATION (11/15/18) INDIVIDUAL PSYCHOTHERAPY, COGNITIVE-BEHAVIORAL (11/15/18) INDIVIDUAL PSYCHOTHERAPY, SUPPORTIVE (11/15/18) INFLUENZA VACCINATION (07/30/13) NEBULIZER THERAPY (07/30/13) OTHER SKIN & SUBQ I D (07/13/13) RELEASE LEFT LARGE INTESTINE, PERC ENDO APPROACH (05/12/16) TETANUS TOXOID ADMINIST (07/13/13) TU REMOV URETER OBSTRUCT (08/29/13) URETERAL CATHETERIZATION (08/29/13) URETEROSCOPY (07/30/13) Family History: States: Unknown Family Hx, Hypertension - Social History Hx Tobacco Use: No Hx Alcohol Use: No Hx Substance Use: Yes - Immunization History Hx Tetanus Toxoid Vaccination: No Hx Influenza Vaccination: Yes (april 2018) Hx Pneumococcal Vaccination: No Review Of Systems Constitutional: Negative for: Fever, Chills, Sweats Cardiovascular: Negative for: Chest Pain Respiratory: Negative for: Shortness of Breath Musculoskeletal: Negative for: Neck Pain Psych: Positive for: Depression Physical Exam - Physical Exam Appears: Non-toxic, No Acute Distress Skin: Warm, Dry Head: Normacephalic Eye(s): bilateral: Normal Inspection, PERRL, EOMI Oral Mucosa: Moist Neck: Trachea Midline, Supple, Other (No meningeal signs- negative kernig's and brudzinskis) Chest: Symmetrical Cardiovascular: Rhythm Regular, No Friction Rub Respiratory: No Rales, No Rhonchi, No Wheezing Gastrointestinal/Abdominal: Soft, No Tenderness, No Distention Extremity: Bilateral: Normal Color And Temperature Pulses: Left Dorsalis Pedis: Normal, Right Dorsalis Pedis: Normal Neurological/Psych: Oriented x3 ED Course And Treatment - Laboratory Results Result Diagrams: 12/06/18 17:42 12/06/18 17:42 O2 Sat by Pulse Oximetry: 100 (on RA) Pulse Ox Interpretation: Normal Medical Decision Making Medical Decision Making: Patient is a 33 year old female, with a PMHx of anemia, depression, asthma, kidney stones, and cholecystectomy, who presents to the ED c/o worsening depression over the past week. Plan: EKG Labs CXR UA Impression: Acute stress reaction vs. depression 1852 pt eloped, told crisis she would come here tomorrow for additional beds Disposition - Disposition Disposition: ELOPEMENT - ER ONLY Disposition Time: 18:52 Condition: STABLE Forms: [facility] (Mozambican) - Clinical Impression Clinical Impression: Depression - Scribe Statement The provider has reviewed the documentation as recorded by the Morenaibtamiko Al All medical record entries made by the Morenaibe were at my direction and personally dictated by me. I have reviewed the chart and agree that the record accurately reflects my personal performance of the history, physical exam, medical decision making, and the department course for this patient. I have also personally directed, reviewed, and agree with the discharge instructions and disposition.
--- NOTE | 2018-12-06 17:49 | RAD ---
Date of service: 12/06/2018 PROCEDURE: CHEST RADIOGRAPH, 1 VIEW HISTORY: Detox/Psy COMPARISON: None available. FINDINGS: LUNGS: The lungs are well inflated and clear. PLEURA: No pneumothorax or pleural effusion. CARDIOVASCULAR: The heart is normal in size. No aortic atherosclerotic calcifications present. OSSEOUS STRUCTURES: Within normal limits for the patient's age. VISUALIZED UPPER ABDOMEN: Normal. OTHER FINDINGS: None. IMPRESSION: No active pulmonary disease.
[2018-12-06 17:54] LABS: BASO # 0.1 K/uL (0.0-0.2); EOS # 0.4 K/uL (0.0-0.7); HEMOGLOBIN 13.5 g/dL (11.0-16.0); LYMPH # 2.1 K/uL (1.0-4.3); LYMPH % 15.8 % (20.0-40.0); MEAN CELL VOLUME 91.5 fL (81.0-99.0); MEAN CORPUSCULAR HEMOGLOBIN 30.6 pg (27.0-31.0); MEAN CORPUSCULAR HGB CONC 33.5 g/dL (33.0-37.0); MEAN PLATELET VOLUME 7.7 fL (7.2-11.7); MONO # 1.3 K/uL (0.0-0.8); MONO % 9.9 % (0.0-10.0); NEUT # 9.3 K/uL (1.8-7.0); NEUT % 70.3 % (50.0-75.0); NRBC % 0.1 % (0.0-2.0); RBC 4.4 Mil/uL (3.80-5.20); RED CELL DISTRIBUTION WIDTH 14.2 % (11.5-14.5); WHITE BLOOD COUNT 13.3 K/uL (4.8-10.8)
[2018-12-06 18:05] LABS: ACETAMINOPHEN < 10.0 ug/mL (10.0-30.0); SALICYLATE < 1.0 {null, mg/dL 1}
[2018-12-06 18:09] LABS: ALB/GLOB RATIO 1.3 (1.0-2.1); ALBUMIN 4.5 g/dL (3.5-5.0); ALT/SGPT 20 U/L (9-52); AST/SGOT 19 U/L (14-36); BLOOD UREA NITROGEN 9 mg/dL (7-17); CALCIUM 9.1 mg/dl (8.6-10.4); GFR NON-AFRICAN AMERICAN > 60
[2018-12-06 18:14] LABS: BARBITURATES, UR NEGATIVE (NEGATIVE); BENZODIAZEPINES, UR NEGATIVE (NEGATIVE); PHENCYCLIDINE, UR NEGATIVE (NEGATIVE)
[2018-12-06 18:21] LABS: OPIATES, UR POSITIVE (NEGATIVE)
== END 2018-12-06 19:06 | disposition left against medical advice (07) ==
LOC: C.ER 17:00
DX: F32.9 Major depressive disorder, single episode, unspecified (principal); J44.9 Chronic obstructive pulmonary disease, unspecified
CPT/HCPCS: 36415; 71045; 80053; 83735; 84100; 84703; 85025; 99283; G0480

== ENCOUNTER 2018-12-07 12:54 | Inpatient (IN) | payer BC ==
[2018-12-07 12:54] VITALS: BMI 26.1
--- NOTE | 2018-12-07 13:35 | C.PDOC ---
History Of Present Illness 33 y/o female presents to the ER requesting detox from heroin.Patient states that she last used heroin in the morning. Patient denies having suicidal ideation, homicidal ideation,and active physical complaints. PMHx of anemia, depression, asthma, kidney stones, and cholecystectomy MULT PRIOR PSYCH ADMISSIONS RECENT DC 11/20/18 SEEN 12/06/18 FOR SAME BUT ELOPED FROM ER Time Seen by Provider: 12/07/18 13:32 Chief Complaint (Nursing): Psychiatric Evaluation Past Medical History Vital Signs: Last Vital Signs Temp 99 F 12/07/18 13:08 Pulse 92 H 12/07/18 13:08 Resp 18 12/07/18 13:08 BP 131/85 12/07/18 13:08 Pulse Ox 99 12/07/18 13:08 Primary Care Provider: Willis Rubio - Medical History PMH: Anemia, Anxiety, Asthma, Back Problems, Bipolar Disorder, COPD, Depression, Kidney Stones, Chronic Kidney Disease (kidney stones), Chronic Pain Denies: Diabetes, Hepatitis, HIV, HTN, Seizures, Sexually Transmitted Disease Surgical History: Cholecystectomy - [facility] Procedures CYSTOSCOPY NEC (07/30/13) DESTRUCTION OF RIGHT OVARY, PERCUTANEOUS ENDOSCOPIC APPROACH (05/12/16) DETOXIFICATION SERVICES FOR SUBSTANCE ABUSE TREATMENT (11/15/18) GROUP MAILING MANAGER FOR SUBSTANCE ABUSE TREATMENT, PSYCHOEDUCATION (11/15/18) GROUP MAILING MANAGER FOR SUBSTANCE ABUSE, COGNITIVE BEHAVIORAL (11/15/18) GROUP PSYCHOTHERAPY (11/15/18) INDIV PSYCHOTHERAPY FOR SUBSTANCE ABUSE TREATMENT, SUPPORT (11/15/18) INDIV PSYCHOTHERAPY FOR SUBSTANCE ABUSE, COGNITIV BEHAVIORAL (11/15/18) INDIV PSYCHOTHERAPY FOR SUBSTANCE ABUSE, MOTIVATION ENHANCE (04/01/18) INDIV PSYCHOTHERAPY FOR SUBSTANCE ABUSE, PSYCHOEDUCATION (11/15/18) INDIVIDUAL PSYCHOTHERAPY, COGNITIVE-BEHAVIORAL (11/15/18) INDIVIDUAL PSYCHOTHERAPY, SUPPORTIVE (11/15/18) INFLUENZA VACCINATION (07/30/13) NEBULIZER THERAPY (07/30/13) OTHER SKIN & SUBQ I D (07/13/13) RELEASE LEFT LARGE INTESTINE, PERC ENDO APPROACH (05/12/16) TETANUS TOXOID ADMINIST (07/13/13) TU REMOV URETER OBSTRUCT (08/29/13) URETERAL CATHETERIZATION (08/29/13) URETEROSCOPY (07/30/13) Family History: States: Unknown Family Hx, Hypertension - Social History Hx Tobacco Use: No Hx Alcohol Use: No Hx Substance Use: No - Immunization History Hx Tetanus Toxoid Vaccination: No Hx Influenza Vaccination: Yes (april 2018) Hx Pneumococcal Vaccination: No Review Of Systems Except As Marked, All Systems Reviewed And Found Negative. Constitutional: Negative for: Fever, Chills Psych: Negative for: Suicidal ideation Physical Exam - Physical Exam Appears: No Acute Distress, Other (calm,cooperative, no acute intoxication) Skin: Normal Color, Warm, Dry Head: Atraumatic, Normacephalic Eye(s): bilateral: Normal Inspection Neck: Supple Chest: Symmetrical Cardiovascular: Rhythm Regular Respiratory: Normal Breath Sounds, No Rales, No Rhonchi, No Wheezing Gastrointestinal/Abdominal: Normal Exam, Soft, No Tenderness, No Guarding, No Rebound Neurological/Psych: Oriented x3, Normal Speech, Other (no active SI) ED Course And Treatment - Laboratory Results Result Diagrams: 12/07/18 14:34 12/07/18 14:34 O2 Sat by Pulse Oximetry: 99 (RA) Pulse Ox Interpretation: Normal Progress - Re-Evaluation Re-evaluation Note: 12/07/18 13:37 D/W CRISIS FILEMON WILL EVAL 12/07/18 15:07 MED CLEAR FOR DETOX CRISIS NOTIFIED 12/07/18 15:53 PER CRISIS MARV, ADMIT OBS PER DR STYLES - Data Reviewed Data Reviewed: Lab, Old records Disposition Counseled Patient/Family Regarding: Studies Performed, Diagnosis - Disposition Disposition: HOSPITALIZED Disposition Time: 15:47 Condition: STABLE Forms: [facility] (Kenyan) - Clinical Impression Clinical Impression: Opiate abuse, continuous - Scribe Statement The provider has reviewed the documentation as recorded by the Dirk Russell Provider Attestation: All medical record entries made by the Morenaibe were at my direction and personally dictated by me. I have reviewed the chart and agree that the record accurately reflects my personal performance of the history, physical exam, medical decision making, and the department course for this patient. I have also personally directed, reviewed, and agree with the discharge instructions and disposition.
[2018-12-07 14:41] LABS: BASO # 0.1 K/uL (0.0-0.2); BASO % 0.8 % (0.0-2.0); EOS # 0.3 K/uL (0.0-0.7); EOS % 2.2 % (0.0-4.0); HEMOGLOBIN 12.9 g/dL (11.0-16.0); LYMPH # 1.6 K/uL (1.0-4.3); LYMPH % 13.5 % (20.0-40.0); MEAN CELL VOLUME 90.4 fL (81.0-99.0); MEAN CORPUSCULAR HEMOGLOBIN 31.1 pg (27.0-31.0); MEAN CORPUSCULAR HGB CONC 34.4 g/dL (33.0-37.0); MONO # 1.2 K/uL (0.0-0.8); NEUT # 8.6 K/uL (1.8-7.0); NEUT % 73.5 % (50.0-75.0); RBC 4.15 Mil/uL (3.80-5.20); WHITE BLOOD COUNT 11.7 K/uL (4.8-10.8)
[2018-12-07 14:42] LABS: HCG,QUALITATIVE URINE NEGATIVE (NEGATIVE)
[2018-12-07 14:47] LABS: SQUAMOUS EPITHIAL < 1 /hpf (0-5); URINE BACTERIA RARE (<OCC); URINE BILIRUBIN NEGATIVE (NEGATIVE); URINE BLOOD 3+ (NEGATIVE); URINE CLARITY Hazy (Clear); URINE COLOR Yellow (YELLOW); URINE GLUCOSE (UA) NORMAL (Normal); URINE LEUKOCYTE ESTERASE NEG Leu/uL (Negative); URINE PROTEIN NEGATIVE (NEGATIVE)
[2018-12-07 14:58] LABS: BARBITURATES, UR NEGATIVE (NEGATIVE); BENZODIAZEPINES, UR NEGATIVE (NEGATIVE); PHENCYCLIDINE, UR NEGATIVE (NEGATIVE)
[2018-12-07 15:04] LABS: ALB/GLOB RATIO 1.2 (1.0-2.1); ALBUMIN 4.3 g/dL (3.5-5.0); ALT/SGPT 19 U/L (9-52); AST/SGOT 24 U/L (14-36); BLOOD UREA NITROGEN 8 mg/dL (7-17); CALCIUM 8.9 mg/dl (8.6-10.4); GFR NON-AFRICAN AMERICAN > 60; OPIATES, UR POSITIVE (NEGATIVE)
--- NOTE | 2018-12-07 16:09 | PCM.BM ---
<Anibal Alonso - Last Filed: 12/07/18 16:06> Treatment Plan Problems - Problems identified on initial assessmt denial Date Initiated: 12/07/18 Time Initiated: 16:07 Assessment reference: NA Status: Active defensive coping Date Initiated: 12/07/18 Time Initiated: 16:08 Assessment reference: NA Status: Active chronic low self esteem Date Initiated: 12/07/18 Time Initiated: 16:09 Assessment reference: NA Status: Active Treatment assets and liabiliti Patient Assests: adapts well, cooperative, resourceful, self-reliant, good support system, negotiates basic needs, cognitively intact Patient Liabilities: substance abuse, medical problems - Milieu Protocol Maintain good personal hygiene: daily Encourage regular showers, daily Remind patient to perform daily oral care, daily Assist patient to perform ADL's Conduct patient checks and document Observation sheet: Q15 minutes Maintain personal safety: every shift Educate patient to report safety concerns to staff, every shift Monitor environment for contraband/sharps Medication safety: Monitor for expected outcome, potential side effects: every shift, Assess barriers to learning: every shift, Assess readiness for medication education: every shift <Marcelino Pham - Last Filed: 12/08/18 12:53> - Diagnosis (1) Opiate abuse, continuous Status: Acute Interventions: 12/08/18 12:53 * Assess 7x/week regarding severity of withdrawal * Educate regarding risks, benefits, side effects and alternatives of medications * Use Motivational Interviewing for abstinence * Use CBT for relapse prevention * Medication management for withdrawal symptoms * Encourage medication assisted treatment *
[2018-12-07] MEDS ORDERED: guaiFENesin DM 200 mg-20 mg/10 ml UD PO PRN (18:42)
[2018-12-07] MEDS ORDERED: Benzocaine/Menthol (Cepacol) Lozenge PO PRN (18:42)
[2018-12-07] MEDS ORDERED: Aluminum Hydroxide/Magnesium Hydroxide Susp (30 mL) PO PRN (18:42)
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
[2018-12-08] MEDS ORDERED: Albuterol 0.083% Inhal Sol (2.5 mg/3 mL) UD IH PRN (12:00)
--- NOTE | 2018-12-09 11:30 | PCM.PYCHPN ---
Psychiatric Progress Note - Psychiatric Progress Note Patient seen today, length of contact: 18 min Patient Chief Complaint: "I am very anxious" Problems Identified/Issues Discussed: The pt is seen, chart reviewed, case discussed with staff. Support and psychoeducation given, CBT and DC used briefly Pt is improving slowly and needs more time, still has ongoing symptoms, especially anxiety She c/o insomnia too Ativan given for anxiety No SEs from medications, risks discussed. After care discussed Medication Change: Yes (detox changes daily) Medical Record Reviewed: Yes Mental Status Examination - Cognitive Function Orientation: Person, Place, Situation, Time Memory: Intact Attention: WNL Concentration: Poor Association: WNL Fund of Knowledge: WNL - Mood Mood: Depressed, Anxious - Affect Affect: Constricted - Speech Speech: Appropriate - Formal Thought Process Formal Thought Process: No Impairment - Suicidal Ideation Suicidal Ideation: No - Homicidal Ideation Homicidal Ideation: No Goal/Treatment Plan - Goal/Treatment Plan Need for Continued Stay: Discharge may exacerbated symptoms, Severe functional impairment Progress Toward Problem(s) and Goals/Treatment Plan: - Methadone detox - Ativan taper - Gabapentin for augmentation if needed - As needed medications - All risks, benefits and alternatives of the medications were discussed with the patient, and the patient agreed and understood. - Attend groups and activities. - Supportive therapy and psychoeducation. - DC for abstinence. - CBT for relapse prevention. - Encourage MAT. - Refer to rehab or IOP, and self-help groups. - Teach healthy lifestyle methods, i.e. diet, exercise, meditation. - DC for smoking cessation - Nicotine patch if needed
--- NOTE | 2018-12-10 11:34 | PCM.PYCHPN ---
Psychiatric Progress Note - Psychiatric Progress Note Patient seen today, length of contact: 18 min Patient Chief Complaint: I am withdrawing.' Problems Identified/Issues Discussed: Patient seen and evaluated, chart reviewed and discussed with the nurse. Patient reports anxiety and reports withdrawal symptoms including, cramps, anxiety and headaches. Patient reports irritability but denies any suicidal ideation or homicidal ideation. She denies any auditory or visual hallucinations. She is tolerating the withdrawal medications and denies any side effects. Supportive therapy and psychoeducation were given. Medication Change: Yes (detox changes daily) Medical Record Reviewed: Yes Mental Status Examination - Cognitive Function Orientation: Person, Place, Situation, Time Memory: Intact Attention: WNL Concentration: Poor Association: WNL Fund of Knowledge: WNL - Mood Mood: Depressed, Anxious - Affect Affect: Constricted - Speech Speech: Appropriate - Formal Thought Process Formal Thought Process: No Impairment - Suicidal Ideation Suicidal Ideation: No - Homicidal Ideation Homicidal Ideation: No Goal/Treatment Plan - Goal/Treatment Plan Need for Continued Stay: Discharge may exacerbated symptoms, Severe functional impairment Progress Toward Problem(s) and Goals/Treatment Plan: - Opioid withdrawal - Opioid use d/o severe - Sedative, hypnotic or anxiolytic use d/o severe - Bipolar d/o severe, without psychosis - Methadone detox - Ativan taper - Gabapentin for augmentation if needed - As needed medications - All risks, benefits and alternatives of the medications were discussed with the patient, and the patient agreed and understood. - Attend groups and activities. - Supportive therapy and psychoeducation. - AK for abstinence. - CBT for relapse prevention. - Encourage MAT. - Refer to rehab or IOP, and self-help groups. - Teach healthy lifestyle methods, i.e. diet, exercise, meditation. - AK for smoking cessation - Nicotine patch if needed
[2018-12-11 09:17] VITALS: RESP 18
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
[2018-12-11 12:14] VITALS: BP 96/65; PULSE 96; TEMP 98.1; O2SAT 96
== END 2018-12-11 12:30 | disposition home or self-care (01) | DRG 897 ==
LOC: C.ER 12:54 → C.7D 15:47 → OBSVTOIN 12-08 11:11
PROVIDERS: ADMIT Psychiatry & Neurology Psychiatry; ATTEND Psychiatry & Neurology Psychiatry
PROC: GZHZZZZ Group Psychotherapy (ICD-10-PCS; principal; 2018-12-08)
PROC: GZ56ZZZ Individual Psychotherapy, Supportive (ICD-10-PCS; 2018-12-08)
DX: F11.23 Opioid dependence with withdrawal (principal); F17.210 Nicotine dependence, cigarettes, uncomplicated; F41.9 Anxiety disorder, unspecified; G47.00 Insomnia, unspecified; F31.9 Bipolar disorder, unspecified; J44.9 Chronic obstructive pulmonary disease, unspecified; N18.9 Chronic kidney disease, unspecified